=== PATIENT | female | born 1950 | race Two or more races ===

== ENCOUNTER 2024-07-16 13:56 | Inpatient (IN) | payer MEDICARE, OTHER ==
[2024-07-16] VITALS (33 sets, daily range): BP systolic 70–114; BP diastolic 35–81; TEMP 94; O2SAT 90–100
[~2024-07-16] VITALS: Ht 152.4 cm; Wt 52.8 kg
[2024-07-16 14:19] LABS: BASOPHILS % (AUTO) 0.4 % (0.0-2.0); EOSINOPHILS % (AUTO) 0.1 % (0.0-6.0); HEMATOCRIT 29 % (33-45); HEMOGLOBIN 9.2 g/dL (11.5-14.8); LYMPHOCYTES # (AUTO) 0.6 K/uL (0.8-4.8); LYMPHOCYTES % (AUTO) 6.6 % (20.0-44.0); MEAN CORPUSCULAR HEMOGLOBIN 29 PG (26.0-33.0); MEAN CORPUSCULAR HGB CONC 32 g/dl (31.0-36.0); MEAN CORPUSCULAR VOLUME 89 fL (82-100); MONOCYTES # (AUTO) 0.6 K/uL (0.1-1.30); MONOCYTES % (AUTO) 6.2 % (2.0-12.0); NEUTROPHILS # (AUTO) 8.4 K/uL (1.8-8.9); NEUTROPHILS % (AUTO) 86.7 % (43.0-81.0); PLATELET COUNT (AUTO) 342 K/uL (150-450); RED BLOOD CELL COUNT(AUTO) 3.22 MIL/uL (4.0-5.2); RED CELL DISTRIBUTION WIDTH 18.3 % (11.5-15.0); WHITE BLOOD COUNT (AUTO) 9.7 K/uL (4.3-11.0)
[2024-07-16] MEDS ORDERED: MAGN400O6 PO (14:24)
[2024-07-16] MEDS ORDERED: AMIN30LI66 PO (14:24)
[2024-07-16] MEDS ORDERED: VALP250S4 PO (14:24)
[2024-07-16] MEDS ORDERED: NA P133E RC (14:24)
[2024-07-16] MEDS ORDERED: CETI-90 PO (14:24)
[2024-07-16] MEDS ORDERED: MULT-213 PO (14:24)
[2024-07-16] MEDS ORDERED: ACET-2030 PO (14:24)
[2024-07-16] MEDS ORDERED: CALC-770 PO (14:24)
[2024-07-16] MEDS ORDERED: DOCU100T2 PO (14:24)
[2024-07-16] MEDS ORDERED: FERR325T28 PO (14:24)
[2024-07-16] MEDS ORDERED: LEVO88TA5 PO (14:24)
[2024-07-16] MEDS ORDERED: FOLI0.4T6 PO (14:24)
[2024-07-16] MEDS ORDERED: RIVA10TA PO (14:24)
[2024-07-16] MEDS ORDERED: QUET25TA PO (14:24)
[2024-07-16] MEDS ORDERED: METO25TA6 PO (14:24)
[2024-07-16] MEDS ORDERED: ASCO500T10 PO (14:24)
[2024-07-16] MEDS ORDERED: BISA10SU11 RC (14:24)
[2024-07-16] MEDS ORDERED: POLY17PO4 PO (14:24)
[2024-07-16] MEDS ORDERED: GABA-532 PO (14:24)
[2024-07-16] MEDS: IV NS 0.9% 1,000 ML BAG IV ONE (14:27)
[2024-07-16 14:35] LABS: ALANINE AMINOTRANSFERASE 11 U/L (12-78); ALBUMIN 2.1 g/dL (3.4-5.0); ALKALINE PHOSPHATASE 100 U/L (46-116); ASPARTATE AMINOTRANSFERASE 23 U/L (15-37); BILIRUBIN,DIRECT 0.1 mg/dL (0.0-0.2); BILIRUBIN,TOTAL 0.4 mg/dL (0.2-1.0); CALCIUM, SERUM 9.1 mg/dL (8.5-10.1); CARBON DIOXIDE 33 mmol/L (21-32); CHLORIDE 116 mmol/L (98-107); CREATININE 1.1 mg/dL (0.6-1.3); GLUCOSE 114 mg/dL (74-106); POTASSIUM 4.6 mmol/L (3.5-5.1); SODIUM SERUM 155 mmol/L (136-145); UREA NITROGEN, BLOOD 60 mg/dL (7-18)
[2024-07-16] MEDS: CEFEPIME 1 GM in IV D5W 50 ML IV ONE (14:39)
[2024-07-16 14:40] LABS: LACTIC ACID 2.1 mmol/L (0.4-2.0)
[2024-07-16 14:47] LABS: INR 1.2 (0.91-1.10); PARTIAL THROMBOPLASTIN TIME 30.8 SEC (24.3-34.3); PROTHROMBIN TIME 12.6 SECS (9.2-11.1)
[2024-07-16 15:06] LABS: APPEARANCE,URINE CLOUDY (CLEAR); BILIRUBIN,URINE NEGATIVE (NEGATIVE); BLOOD, URINE 1+ Ery/uL (NEGATIVE); COLOR,URINE YELLOW (YELLOW); KETONES,URINE NEGATIVE (NEGATIVE); LEUKOCYTE ESTERASE ,URINE 3+ (NEGATIVE); NITRITE, URINE POSITIVE (NEGATIVE); PROTEIN,URINE 1+ mg/dl (NEGATIVE); UGLUCOSE NEGATIVE (NEGATIVE); UROBILINOGEN,URINE 0.2 EU/dL (0.2)
[2024-07-16] MEDS: VANCOMYCIN 1 GM in IV D5W 250 ML IV ONE (15:06)
[2024-07-16] MEDS ORDERED: NOREPINEPHRINE 8MG/250ML RTU 250 ML IV ONE ×2 (15:08→15:59)
[2024-07-16] MEDS: NOREPINEPHRINE 8 MG in IV NS 0.9% 250 ML IV ONE (15:26)
[2024-07-16 15:41] LABS: ADD URINE CULTURE YES; BACTERIA,URINE 3+ /HPF (None Seen); SQUAMOUS EPITHELIAL CELL,UR 0-2 /HPF (None Seen); WBC,URINE 51-80 /HPF (0-3)
[2024-07-16] MEDS ORDERED: Z GUARD REMEDY 4 OZ OINT TP PRN (16:00)
[2024-07-16] MEDS ORDERED: ACETAMINOPHEN 325 MG TABLET PO PRN (16:00)
[2024-07-16] MEDS ORDERED: ONDANSETRON HCL/PF 4 MG/2 ML VIAL IVP PRN (16:00)
[2024-07-16] MEDS ORDERED: IV NS 0.9% 1,000 ML IV PRN (16:00)
[2024-07-16] MEDS ORDERED: MAGNESIUM HYDROXIDE 30 ML UDC PO PRN (16:00)
[2024-07-16] MEDS ORDERED: MAG HYDROX/AL HYDROX/SIMETH 30 ML UDC PO PRN (16:00)
[2024-07-16] MEDS ORDERED: HYDROCORTISONE SOD SUCCINATE 100 MG/2 ML VIAL ONE (16:17)
[2024-07-16] MEDS: HYDROCORTISONE SOD SUCCINATE 100 MG/2 ML VIAL IV ONE (16:21)
[2024-07-16] MEDS: IV LR 500 ML IV ONE (16:22)
[2024-07-16] MEDS ORDERED: AMIODARONE 150 MG in IV D5W 100 ML IV ONE (17:00)
[2024-07-16] MEDS: CALCIUM CARB 600MG /VIT D 1 EACH TABLET PO SCH (17:00)
[2024-07-16] MEDS: FERROUS SULFATE (325 MG) 325 MG/TAB TABLET PO SCH (17:00)
[2024-07-16] MEDS ORDERED: PHENYLEPHRINE 100 MG in IV NS 0.9% 240 ML IV PRN (17:00)
[2024-07-16] MEDS: VALPROIC ACID 250 MG/5 ML UDC PO SCH (17:00)
[2024-07-16] MEDS ORDERED: AMIODARONE 450 MG in IV D5W 241 ML IV PRN (17:00)
[2024-07-16] MEDS: PHENYLEPHRINE 100 MG in IV NS 0.9% 240 ML IV PRN (17:07)
[2024-07-16] MEDS: VASOPRESSIN INJ 40 UNIT in IV NS 0.9% 38 ML IV PRN (17:07)
[2024-07-16] MEDS: NOREPINEPHRINE 32 MG in IV NS 0.9% 218 ML IV PRN (17:07)
[2024-07-16 17:19] LABS: BAND % (MANUAL) 12 % (0.0-5.0); LYMPHOCYTES % (MANUAL) 9 % (16-48); METAMYELOCYTES % 1 % (0-0); MONOCYTES % (MANUAL) 2 % (0-11.0); NEUTROPHILS % (MANUAL) 76 (42-76); PLATELET ESTIMATE ADEQUATE
[2024-07-16 17:20] LABS: ANISOCYTOSIS 1+
[2024-07-16] MEDS ORDERED: EPINEPHRINE (1:10,000) SYRINGE 1 MG/10 ML DISP.SYRIN IVP ONE (17:25)
[2024-07-16 17:35] LABS: ABG BASE EXCESS 1.2 mmol/L (-2.0-3.0); ABG OXYGEN SATURATION 98.8 % (94.0-98.0); ABG PCO2 44.1 mmHg (32.0-45.0); ABG PH 7.394 (7.350-7.450); ABG PO2 151.2 mmHg (83.0-108.0); COHb 0.3 % (0.5-1.5); MetHb 0.4 % (0.0-1.5); O2Hb 98.1 % (94.0-97.0); SITE, ABG RIGHT RADIAL
[2024-07-16] MEDS: IV LR 1000 ML 1,000 ML IV ONE (17:40)
[2024-07-16] MEDS: IV 1/2NS 1000 ML 1,000 ML IV SCH (17:41)
[2024-07-16] MEDS: POLYETHYLENE GLYCOL 3350 17 GM POWD.PACK PO SCH (17:43)
[2024-07-16] MEDS: RIVAROXABAN 10 MG TABLET PO SCH (17:43)
[2024-07-16] MEDS ORDERED: Medication Not On Formulary EA (Amino AC/Protein Hydr/Whey Pro (Liquacel Liquid Protein PO SCH (18:00)
[2024-07-16 18:22] LABS: ABG BASE EXCESS -5.7 mmol/L (-2.0-3.0); ABG OXYGEN SATURATION 86.6 % (94.0-98.0); ABG PCO2 29.7 mmHg (32.0-45.0); ABG PH 7.404 (7.350-7.450); COHb 0.3 % (0.5-1.5); O2Hb 86.3 % (94.0-97.0); PEEP,BG 0 cm H2O; SITE, ABG RIGHT RADIAL; VT, ABG 500 mL
[2024-07-16] MEDS: ENOXAPARIN SODIUM 40 MG/0.4 ML DISP.SYRIN SQ SCH (18:49)
[2024-07-16] MEDS: CEFEPIME 1 GM in IV D5W 50 ML IV SCH (21:00)
[2024-07-16 21:18] LABS: CALCIUM, SERUM 8.7 mg/dL (8.5-10.1); CARBON DIOXIDE 26 mmol/L (21-32); CHLORIDE 113 mmol/L (98-107); GLUCOSE 256 mg/dL (74-106); SODIUM SERUM 150 mmol/L (136-145); UREA NITROGEN, BLOOD 51 mg/dL (7-18)
[2024-07-17] VITALS (92 sets, daily range): BP systolic 82–124; BP diastolic 49–79; TEMP 98.4–101.6; O2SAT 94–100
[2024-07-17] MEDS: VANCOMYCIN 500 MG in IV D5W 100ml IV SCH (03:00)
[2024-07-17 04:50] LABS: BASOPHILS % (AUTO) 0.2 % (0.0-2.0); HEMATOCRIT 29 % (33-45); HEMOGLOBIN 9.4 g/dL (11.5-14.8); LYMPHOCYTES % (AUTO) 9.2 % (20.0-44.0); MEAN CORPUSCULAR HEMOGLOBIN 29 PG (26.0-33.0); MEAN CORPUSCULAR HGB CONC 32 g/dl (31.0-36.0); MEAN CORPUSCULAR VOLUME 90 fL (82-100); MONOCYTES % (AUTO) 9.4 % (2.0-12.0); NEUTROPHILS # (AUTO) 8.6 K/uL (1.8-8.9); NEUTROPHILS % (AUTO) 81.2 % (43.0-81.0); PLATELET COUNT (AUTO) 411 K/uL (150-450); RED BLOOD CELL COUNT(AUTO) 3.28 MIL/uL (4.0-5.2); RED CELL DISTRIBUTION WIDTH 17.4 % (11.5-15.0); WHITE BLOOD COUNT (AUTO) 10.7 K/uL (4.3-11.0)
[2024-07-17] MEDS: ACETAMINOPHEN 650 MG/SUPP.RECT RC PRN (04:50)
[2024-07-17 05:02] LABS: CARBON DIOXIDE 24 mmol/L (21-32); CHLORIDE 111 mmol/L (98-107); CREATININE 0.9 mg/dL (0.6-1.3); GLUCOSE 129 mg/dL (74-106); MAGNESIUM 2.1 mg/dL (1.8-2.4); PHOSPHORUS 2.3 mg/dL (2.5-4.9); POTASSIUM 3.8 mmol/L (3.5-5.1); SODIUM SERUM 147 mmol/L (136-145); UREA NITROGEN, BLOOD 44 mg/dL (7-18)
[2024-07-17] MEDS ORDERED: LEVOTHYROXINE SODIUM 88 MCG TABLET PO SCH (07:30)
[2024-07-17] MEDS ORDERED: MAG HYDROX/AL HYDROX/SIMETH 30 ML UDC GT PRN (08:13)
[2024-07-17] MEDS ORDERED: MAGNESIUM HYDROXIDE 30 ML UDC GT PRN (08:13)
[2024-07-17] MEDS ORDERED: INSULIN REGULAR, HUMAN 100 UNIT/ML 3 ML VIAL SQ PRN (08:30)
[2024-07-17] MEDS ORDERED: BLOOD SUGAR DIAGNOSTIC 1 EACH STRIP IN SCH (08:30)
[2024-07-17] MEDS ORDERED: PHARMACY TO CHANGE PO MEDS TO GT/NG XX PRN (08:30)
[2024-07-17] MEDS ORDERED: DEXTROSE 50%-WATER 50 ML DISP.SYRIN IV PRN (08:30)
[2024-07-17] MEDS: DOCUSATE SODIUM LIQ 100 MG/10 ML UDC GT SCH (09:20)
[2024-07-17] MEDS: FOLIC ACID 1 MG TABLET GT SCH (09:21)
[2024-07-17] MEDS: ASCORBIC ACID 500 MG TABLET GT SCH (09:21)
[2024-07-17] MEDS: VALPROIC ACID 250 MG/5 ML UDC GT SCH (09:21)
[2024-07-17] MEDS: FERROUS SULFATE (325 MG) 325 MG/TAB TABLET GT SCH (09:21)
[2024-07-17] MEDS: MULTIVIT W/MINERALS 1 TAB TABLET GT SCH (09:21)
[2024-07-17] MEDS: IV 1/2NS 1000 ML 1,000 ML IV PRN (12:45)
[2024-07-17] MEDS: Sodium Phosphate 15 MMOL in IV NS 0.9% 245 ML IV SCH (15:48)
[2024-07-17] MEDS: ACETAMINOPHEN 650 MG/20.3 ML UDC GT PRN (16:26)
[2024-07-17] MEDS: POLYETHYLENE GLYCOL 3350 17 GM POWD.PACK GT SCH (17:12)
[2024-07-18] VITALS (99 sets, daily range): BP systolic 87–168; BP diastolic 53–120; TEMP 98.1–99.7; O2SAT 94–100
[2024-07-18 02:27] LABS: CALCIUM, SERUM 7.9 mg/dL (8.5-10.1); CARBON DIOXIDE 29 mmol/L (21-32); CHLORIDE 105 mmol/L (98-107); CREATININE 0.7 mg/dL (0.6-1.3); GLUCOSE 110 mg/dL (74-106); PHOSPHORUS 3.2 mg/dL (2.5-4.9); SODIUM SERUM 138 mmol/L (136-145); UREA NITROGEN, BLOOD 22 mg/dL (7-18)
[2024-07-18 03:02] LABS: POTASSIUM 2.6 mmol/L (3.5-5.1)
[2024-07-18] MEDS: POTASSIUM CL. PREMIX PERIPHER. 50 ML IV SCH (03:36)
[2024-07-18] MEDS: LEVOTHYROXINE SODIUM 88 MCG TABLET GT SCH (08:38)
[2024-07-18 09:23] LABS: ABG BASE EXCESS -0.3 mmol/L (-2.0-3.0); ABG OXYGEN SATURATION 93.1 % (94.0-98.0); ABG PCO2 20.8 mmHg (32.0-45.0); ABG PH 7.605 (7.350-7.450); ABG PO2 62.9 mmHg (83.0-108.0); ABG TOTAL HEMOGLOBIN 9.1 G/dL (12.0-16.0); COHb 0.3 % (0.5-1.5); MetHb 0.5 % (0.0-1.5); O2Hb 92.4 % (94.0-97.0); PEEP,BG 0 cm H2O; SITE, ABG RIGHT RADIAL; VT, ABG 500 mL
[2024-07-18 12:24] LABS: CARBON DIOXIDE 26 mmol/L (21-32); CHLORIDE 105 mmol/L (98-107); CREATININE 0.6 mg/dL (0.6-1.3); GLUCOSE 103 mg/dL (74-106); SODIUM SERUM 139 mmol/L (136-145); UREA NITROGEN, BLOOD 16 mg/dL (7-18)
[2024-07-18] MEDS: HYDROCORTISONE SOD SUCCINATE 100 MG/2 ML VIAL IV SCH (12:28)
[2024-07-18] MEDS: IPRATROPIUM NEB FS 0.5 MG/2.5 ML AMPUL.NEB NEB SCH (15:36)
[2024-07-18] MEDS: ACETYLCYSTEINE 10% SOLN 400 MG/4 ML VIAL NEB SCH (15:36)
[2024-07-18] MEDS: POTASSIUM CHLORIDE 20 MEQ POWDER PACKET NG SCH (15:36)
[2024-07-19] VITALS (93 sets, daily range): BP systolic 94–120; BP diastolic 60–98; TEMP 98–98.9; O2SAT 98–100
[2024-07-19 04:27] LABS: BASOPHILS % (AUTO) 0.2 % (0.0-2.0); HEMATOCRIT 24 % (33-45); LYMPHOCYTES # (AUTO) 0.5 K/uL (0.8-4.8); LYMPHOCYTES % (AUTO) 5.1 % (20.0-44.0); MEAN CORPUSCULAR HEMOGLOBIN 29 PG (26.0-33.0); MEAN CORPUSCULAR HGB CONC 33 g/dl (31.0-36.0); MEAN CORPUSCULAR VOLUME 87 fL (82-100); MONOCYTES # (AUTO) 0.4 K/uL (0.1-1.30); NEUTROPHILS # (AUTO) 9.5 K/uL (1.8-8.9); NEUTROPHILS % (AUTO) 90.7 % (43.0-81.0); PLATELET COUNT (AUTO) 292 K/uL (150-450); RED BLOOD CELL COUNT(AUTO) 2.79 MIL/uL (4.0-5.2); RED CELL DISTRIBUTION WIDTH 17.4 % (11.5-15.0); WHITE BLOOD COUNT (AUTO) 10.5 K/uL (4.3-11.0)
[2024-07-19 04:46] LABS: CALCIUM, SERUM 8.2 mg/dL (8.5-10.1); CARBON DIOXIDE 22 mmol/L (21-32); CHLORIDE 105 mmol/L (98-107); CREATININE 0.5 mg/dL (0.6-1.3); GLUCOSE 112 mg/dL (74-106); POTASSIUM 3.6 mmol/L (3.5-5.1); SODIUM SERUM 139 mmol/L (136-145); UREA NITROGEN, BLOOD 16 mg/dL (7-18)
[2024-07-19 08:53] LABS: ABG BASE EXCESS -1.6 mmol/L (-2.0-3.0); ABG OXYGEN SATURATION 97.5 % (94.0-98.0); ABG PCO2 24.9 mmHg (32.0-45.0); ABG PH 7.528 (7.350-7.450); ABG PO2 100.6 mmHg (83.0-108.0); ABG TOTAL HEMOGLOBIN 9.3 G/dL (12.0-16.0); COHb 0.3 % (0.5-1.5); MetHb 0.1 % (0.0-1.5); O2Hb 97.1 % (94.0-97.0); PEEP,BG 5 cm H2O; SITE, ABG RIGHT RADIAL; VT, ABG 450 mL
[2024-07-19] MEDS: AMIODARONE 150 MG in IV D5W 100 ML IV ONE (09:30)
[2024-07-19] MEDS ORDERED: AMIODARONE 450 MG in IV D5W 250 ML IV PRN (09:40)
[2024-07-19 10:32] LABS: MAGNESIUM 1.9 mg/dL (1.8-2.4)
[2024-07-19 10:44] LABS: THYROID STIMULATING HORMONE 0.29 uIU/mL (0.358-3.74)
[2024-07-19] MEDS: JEVITY 1.2 CAL 1,000 ML BOTTLE GT PRN (14:26)
[2024-07-19] MEDS: VANCOMYCIN 750 MG in IV D5W 250 ML IV SCH (15:18)
[2024-07-19] MEDS ORDERED: NOREPINEPHRINE 8 MG in IV D5W 250ML IV PRN (19:30)
[2024-07-19] MEDS ORDERED: NOREPINEPHRINE 8 MG in IV D5W 492 ML IV PRN (19:30)
[2024-07-20] VITALS (95 sets, daily range): BP systolic 99–127; BP diastolic 56–83; TEMP 98.3–100.4; O2SAT 95–100
[2024-07-20 04:47] LABS: BASOPHILS % (AUTO) 0.1 % (0.0-2.0); HEMATOCRIT 26 % (33-45); HEMOGLOBIN 8.5 g/dL (11.5-14.8); LYMPHOCYTES # (AUTO) 0.5 K/uL (0.8-4.8); LYMPHOCYTES % (AUTO) 6.2 % (20.0-44.0); MEAN CORPUSCULAR HEMOGLOBIN 29 PG (26.0-33.0); MEAN CORPUSCULAR HGB CONC 33 g/dl (31.0-36.0); MEAN CORPUSCULAR VOLUME 88 fL (82-100); MONOCYTES # (AUTO) 0.4 K/uL (0.1-1.30); MONOCYTES % (AUTO) 4.7 % (2.0-12.0); NEUTROPHILS # (AUTO) 7.6 K/uL (1.8-8.9); PLATELET COUNT (AUTO) 286 K/uL (150-450); RED BLOOD CELL COUNT(AUTO) 2.94 MIL/uL (4.0-5.2); RED CELL DISTRIBUTION WIDTH 17.3 % (11.5-15.0); WHITE BLOOD COUNT (AUTO) 8.6 K/uL (4.3-11.0)
[2024-07-20 05:02] LABS: CALCIUM, SERUM 7.7 mg/dL (8.5-10.1); CARBON DIOXIDE 22 mmol/L (21-32); CHLORIDE 104 mmol/L (98-107); CREATININE 0.5 mg/dL (0.6-1.3); GLUCOSE 156 mg/dL (74-106); SODIUM SERUM 136 mmol/L (136-145); UREA NITROGEN, BLOOD 18 mg/dL (7-18)
[2024-07-20] MEDS: POTASSIUM CHLORIDE 20 MEQ POWDER PACKET GT SCH (08:38)
[2024-07-20] MEDS ORDERED: POTASSIUM CHLORIDE 20 MEQ POWDER PACKET GT SCH (09:30)
[2024-07-21] VITALS (78 sets, daily range): BP systolic 85–124; BP diastolic 45–82; TEMP 97–98.8; O2SAT 96–99
[2024-07-21 02:05] LABS: BASOPHILS % (AUTO) 0.1 % (0.0-2.0); EOSINOPHILS # (AUTO) 0.1 K/uL (0.0-0.7); EOSINOPHILS % (AUTO) 0.4 % (0.0-6.0); HEMATOCRIT 31 % (33-45); HEMOGLOBIN 9.7 g/dL (11.5-14.8); LYMPHOCYTES # (AUTO) 0.7 K/uL (0.8-4.8); LYMPHOCYTES % (AUTO) 5.2 % (20.0-44.0); MEAN CORPUSCULAR HEMOGLOBIN 29 PG (26.0-33.0); MEAN CORPUSCULAR HGB CONC 31 g/dl (31.0-36.0); MEAN CORPUSCULAR VOLUME 93 fL (82-100); MONOCYTES % (AUTO) 7.6 % (2.0-12.0); NEUTROPHILS # (AUTO) 11.7 K/uL (1.8-8.9); NEUTROPHILS % (AUTO) 86.7 % (43.0-81.0); PLATELET COUNT (AUTO) 228 K/uL (150-450); RED BLOOD CELL COUNT(AUTO) 3.38 MIL/uL (4.0-5.2); RED CELL DISTRIBUTION WIDTH 17.9 % (11.5-15.0); WHITE BLOOD COUNT (AUTO) 13.5 K/uL (4.3-11.0)
[2024-07-21 02:11] LABS: CALCIUM, SERUM 7.9 mg/dL (8.5-10.1); CARBON DIOXIDE 23 mmol/L (21-32); CHLORIDE 106 mmol/L (98-107); CREATININE 0.5 mg/dL (0.6-1.3); GLUCOSE 158 mg/dL (74-106); POTASSIUM 4.2 mmol/L (3.5-5.1); SODIUM SERUM 136 mmol/L (136-145); UREA NITROGEN, BLOOD 19 mg/dL (7-18)
[2024-07-21] MEDS: AMIODARONE HCL 200 MG TABLET NG SCH ×2 (09:20→14:45)
[2024-07-21] MEDS: VALPROIC ACID 250 MG/5 ML UDC GT SCH (14:42)
[2024-07-21] MEDS: CALCIUM CARB 600MG /VIT D 1 EACH TABLET PO SCH (20:38)
[2024-07-21] MEDS: FERROUS SULFATE (325 MG) 325 MG/TAB TABLET GT SCH (20:38)
[2024-07-22] VITALS (25 sets, daily range): BP systolic 86–120; BP diastolic 44–70; TEMP 97.1–97.9; O2SAT 97–100
[2024-07-22 05:24] LABS: CALCIUM, SERUM 7.7 mg/dL (8.5-10.1); CARBON DIOXIDE 22 mmol/L (21-32); CHLORIDE 105 mmol/L (98-107); CREATININE 0.4 mg/dL (0.6-1.3); GLUCOSE 186 mg/dL (74-106); POTASSIUM 3.8 mmol/L (3.5-5.1); SODIUM SERUM 136 mmol/L (136-145); UREA NITROGEN, BLOOD 21 mg/dL (7-18)
[2024-07-23] VITALS (25 sets, daily range): BP systolic 90–129; BP diastolic 43–74; TEMP 97.5–98.5; O2SAT 94–100
[2024-07-23 04:49] LABS: CALCIUM, SERUM 8.4 mg/dL (8.5-10.1); CARBON DIOXIDE 27 mmol/L (21-32); CHLORIDE 107 mmol/L (98-107); CREATININE 0.4 mg/dL (0.6-1.3); GLUCOSE 150 mg/dL (74-106); POTASSIUM 4.1 mmol/L (3.5-5.1); SODIUM SERUM 140 mmol/L (136-145); UREA NITROGEN, BLOOD 19 mg/dL (7-18)
[2024-07-23] MEDS: JEVITY 1.2 CAL 1,000 ML BOTTLE GT PRN (17:53)
[2024-07-23] MEDS: CEFEPIME 2 GM in IV D5W 100 ML IV SCH (21:10)
[2024-07-24] VITALS (24 sets, daily range): BP systolic 96–128; BP diastolic 57–84; TEMP 97.6–98.6; O2SAT 97–100
[2024-07-24 04:33] LABS: CALCIUM, SERUM 8.2 mg/dL (8.5-10.1); CREATININE 0.3 mg/dL (0.6-1.3); GLUCOSE 139 mg/dL (74-106); UREA NITROGEN, BLOOD 19 mg/dL (7-18)
[2024-07-24 04:57] LABS: CARBON DIOXIDE 30 mmol/L (21-32); CHLORIDE 105 mmol/L (98-107); SODIUM SERUM 140 mmol/L (136-145)
[2024-07-24 09:12] LABS: THYROID STIMULATING HORMONE 2.49 uIU/mL (0.358-3.74)
[2024-07-24] MEDS: AMIODARONE HCL 200 MG TABLET NG SCH (13:12)
[2024-07-25] VITALS (20 sets, daily range): BP systolic 97–134; BP diastolic 39–65; TEMP 97.8–98.8; O2SAT 97–100
[2024-07-25 04:27] LABS: BASOPHILS % (AUTO) 0.4 % (0.0-2.0); HEMATOCRIT 26 % (33-45); HEMOGLOBIN 8.5 g/dL (11.5-14.8); LYMPHOCYTES # (AUTO) 0.6 K/uL (0.8-4.8); LYMPHOCYTES % (AUTO) 5.5 % (20.0-44.0); MEAN CORPUSCULAR HEMOGLOBIN 29 PG (26.0-33.0); MEAN CORPUSCULAR HGB CONC 33 g/dl (31.0-36.0); MEAN CORPUSCULAR VOLUME 90 fL (82-100); MONOCYTES # (AUTO) 0.4 K/uL (0.1-1.30); MONOCYTES % (AUTO) 3.8 % (2.0-12.0); NEUTROPHILS # (AUTO) 9.8 K/uL (1.8-8.9); NEUTROPHILS % (AUTO) 90.3 % (43.0-81.0); PLATELET COUNT (AUTO) 438 K/uL (150-450); RED BLOOD CELL COUNT(AUTO) 2.91 MIL/uL (4.0-5.2); RED CELL DISTRIBUTION WIDTH 17.9 % (11.5-15.0); WHITE BLOOD COUNT (AUTO) 10.8 K/uL (4.3-11.0)
[2024-07-25 04:37] LABS: CARBON DIOXIDE 27 mmol/L (21-32); CHLORIDE 102 mmol/L (98-107); CREATININE 0.4 mg/dL (0.6-1.3); GLUCOSE 154 mg/dL (74-106); POTASSIUM 3.8 mmol/L (3.5-5.1); SODIUM SERUM 137 mmol/L (136-145); UREA NITROGEN, BLOOD 20 mg/dL (7-18)
[2024-07-25 05:28] LABS: BAND % (MANUAL) 4 % (0.0-5.0); LYMPHOCYTES % (MANUAL) 2 % (16-48); MONOCYTES % (MANUAL) 6 % (0-11.0); MYELOCYTES % 1 % (0-0); NEUTROPHILS % (MANUAL) 87 (42-76)
[2024-07-25 05:29] LABS: ANISOCYTOSIS 1+; HYPOCHROMASIA 1+; PLATELET ESTIMATE ADEQUATE
[2024-07-26] VITALS (25 sets, daily range): BP systolic 105–130; BP diastolic 53–70; TEMP 97.5–98.5; O2SAT 95–100
[2024-07-26 02:11] LABS: FOLIC ACID 11.5 ng/mL (>3.0)
[2024-07-26 05:37] LABS: CALCIUM, SERUM 7.3 mg/dL (8.5-10.1); CARBON DIOXIDE 28 mmol/L (21-32); CHLORIDE 102 mmol/L (98-107); CREATININE 0.3 mg/dL (0.6-1.3); GLUCOSE 162 mg/dL (74-106); POTASSIUM 3.6 mmol/L (3.5-5.1); SODIUM SERUM 138 mmol/L (136-145); UREA NITROGEN, BLOOD 19 mg/dL (7-18)
[2024-07-27] VITALS (51 sets, daily range): BP systolic 92–143; BP diastolic 46–85; TEMP 97.5–98.7; O2SAT 94–100
[2024-07-27 05:08] LABS: CALCIUM, SERUM 7.8 mg/dL (8.5-10.1); CARBON DIOXIDE 28 mmol/L (21-32); CHLORIDE 102 mmol/L (98-107); CREATININE 0.4 mg/dL (0.6-1.3); GLUCOSE 134 mg/dL (74-106); MAGNESIUM 2.1 mg/dL (1.8-2.4); PHOSPHORUS 2.4 mg/dL (2.5-4.9); POTASSIUM 3.1 mmol/L (3.5-5.1); SODIUM SERUM 138 mmol/L (136-145); UREA NITROGEN, BLOOD 20 mg/dL (7-18)
[2024-07-27 05:14] LABS: BASOPHILS % (AUTO) 0.1 % (0.0-2.0); HEMATOCRIT 25 % (33-45); HEMOGLOBIN 8.7 g/dL (11.5-14.8); LYMPHOCYTES # (AUTO) 0.4 K/uL (0.8-4.8); LYMPHOCYTES % (AUTO) 5.3 % (20.0-44.0); MEAN CORPUSCULAR HEMOGLOBIN 31 PG (26.0-33.0); MEAN CORPUSCULAR HGB CONC 34 g/dl (31.0-36.0); MEAN CORPUSCULAR VOLUME 89 fL (82-100); MONOCYTES # (AUTO) 0.3 K/uL (0.1-1.30); MONOCYTES % (AUTO) 4.3 % (2.0-12.0); NEUTROPHILS # (AUTO) 6.9 K/uL (1.8-8.9); NEUTROPHILS % (AUTO) 90.3 % (43.0-81.0); PLATELET COUNT (AUTO) 522 K/uL (150-450); RED BLOOD CELL COUNT(AUTO) 2.83 MIL/uL (4.0-5.2); WHITE BLOOD COUNT (AUTO) 7.7 K/uL (4.3-11.0)
[2024-07-27] MEDS: VECURONIUM 10 MG VIAL IV PRN (07:31)
[2024-07-27] MEDS: FENTANYL PF 100MCG/2ML AMPUL IV PRN (07:31)
[2024-07-27] MEDS: MIDAZOLAM HCL 2 MG/2ML VIAL IV PRN (07:31)
[2024-07-27 09:19] LABS: IRON, SERUM 40 ug/dl (50-175); TOTAL IRON BINDING CAPACITY 216 ug/dl (250-450)
[2024-07-27 09:34] LABS: FERRITIN 254 ng/mL (8-388)
[2024-07-27] MEDS: POTASSIUM CL. PREMIX PERIPHER. 50 ML IV SCH (10:13)
[2024-07-27] MEDS: HYDROCORTISONE SOD SUCCINATE 100 MG/2 ML VIAL IV SCH (13:24)
[2024-07-27 15:33] LABS: ANISOCYTOSIS 1+; BAND % (MANUAL) 1 % (0.0-5.0); LYMPHOCYTES % (MANUAL) 5 % (16-48); MONOCYTES % (MANUAL) 2 % (0-11.0); NEUTROPHILS % (MANUAL) 92 (42-76); PLATELET ESTIMATE INCREASED
[2024-07-27] MEDS: NEUTRA PHOS 1 POWD.PACKET GT ONE (16:12)
[2024-07-28] VITALS (13 sets, daily range): BP systolic 90–117; BP diastolic 47–66; TEMP 97.5–98.8; O2SAT 95–98
[2024-07-28 04:59] LABS: BASOPHILS % (AUTO) 0.1 % (0.0-2.0); HEMATOCRIT 26 % (33-45); HEMOGLOBIN 8.4 g/dL (11.5-14.8); LYMPHOCYTES # (AUTO) 0.5 K/uL (0.8-4.8); LYMPHOCYTES % (AUTO) 4.7 % (20.0-44.0); MEAN CORPUSCULAR HEMOGLOBIN 30 PG (26.0-33.0); MEAN CORPUSCULAR HGB CONC 33 g/dl (31.0-36.0); MEAN CORPUSCULAR VOLUME 90 fL (82-100); MONOCYTES # (AUTO) 0.5 K/uL (0.1-1.30); MONOCYTES % (AUTO) 4.1 % (2.0-12.0); NEUTROPHILS # (AUTO) 10.3 K/uL (1.8-8.9); NEUTROPHILS % (AUTO) 91.1 % (43.0-81.0); PLATELET COUNT (AUTO) 514 K/uL (150-450); RED BLOOD CELL COUNT(AUTO) 2.84 MIL/uL (4.0-5.2); RED CELL DISTRIBUTION WIDTH 19.3 % (11.5-15.0); WHITE BLOOD COUNT (AUTO) 11.3 K/uL (4.3-11.0)
[2024-07-28 05:18] LABS: CALCIUM, SERUM 7.8 mg/dL (8.5-10.1); CARBON DIOXIDE 28 mmol/L (21-32); CHLORIDE 103 mmol/L (98-107); CREATININE 0.3 mg/dL (0.6-1.3); GLUCOSE 125 mg/dL (74-106); MAGNESIUM 2.2 mg/dL (1.8-2.4); PHOSPHORUS 3.5 mg/dL (2.5-4.9); POTASSIUM 3.6 mmol/L (3.5-5.1); SODIUM SERUM 139 mmol/L (136-145); UREA NITROGEN, BLOOD 21 mg/dL (7-18)
[2024-07-29] VITALS (8 sets, daily range): BP systolic 108–132; BP diastolic 58–70; TEMP 97.3–98.2; O2SAT 96–100
[2024-07-30 01:08] VITALS: BP 101/84; TEMP 97.2; O2SAT 100
[2024-07-30 04:13] VITALS: BP 111/53; TEMP 97; O2SAT 100
[2024-07-30 06:38] LABS: BASOPHILS % (AUTO) 0.4 % (0.0-2.0); HEMATOCRIT 28 % (33-45); HEMOGLOBIN 8.7 g/dL (11.5-14.8); LYMPHOCYTES # (AUTO) 0.9 K/uL (0.8-4.8); LYMPHOCYTES % (AUTO) 11.9 % (20.0-44.0); MEAN CORPUSCULAR HEMOGLOBIN 29 PG (26.0-33.0); MEAN CORPUSCULAR HGB CONC 32 g/dl (31.0-36.0); MEAN CORPUSCULAR VOLUME 92 fL (82-100); MONOCYTES # (AUTO) 0.4 K/uL (0.1-1.30); MONOCYTES % (AUTO) 6.1 % (2.0-12.0); NEUTROPHILS % (AUTO) 81.6 % (43.0-81.0); PLATELET COUNT (AUTO) 419 K/uL (150-450); RED BLOOD CELL COUNT(AUTO) 3.02 MIL/uL (4.0-5.2); RED CELL DISTRIBUTION WIDTH 19.9 % (11.5-15.0); WHITE BLOOD COUNT (AUTO) 7.3 K/uL (4.3-11.0)
[2024-07-30 07:01] LABS: CALCIUM, SERUM 7.9 mg/dL (8.5-10.1); CARBON DIOXIDE 27 mmol/L (21-32); CHLORIDE 101 mmol/L (98-107); CREATININE 0.3 mg/dL (0.6-1.3); GLUCOSE 102 mg/dL (74-106); PHOSPHORUS 2.4 mg/dL (2.5-4.9); SODIUM SERUM 139 mmol/L (136-145); UREA NITROGEN, BLOOD 13 mg/dL (7-18)
[2024-07-30 07:06] LABS: POTASSIUM 2.4 mmol/L (3.5-5.1)
[2024-07-30 08:00] VITALS: BP 115/58; TEMP 97.9; O2SAT 100; O2SAT 99
[2024-07-30] MEDS ORDERED: POTASSIUM CL. PREMIX PERIPHER. 50 ML IV SCH (08:30)
[2024-07-30] MEDS: Potassium Chloride 20 MEQ in IV D5W 100 ML IV SCH (09:05)
[2024-07-30 12:00] VITALS: BP 112/48; TEMP 98.1; O2SAT 100; O2SAT 96
[2024-07-30] MEDS: NEUTRA PHOS 1 POWD.PACKET GT ONE (15:30)
[2024-07-30 16:00] VITALS: BP 106/47; TEMP 97.9; O2SAT 100
[2024-07-30 20:00] VITALS: BP 103/48; TEMP 98.6; O2SAT 97
[2024-07-31] VITALS (7 sets, daily range): BP systolic 98–111; BP diastolic 47–56; TEMP 97.2–99; O2SAT 97–99
[2024-07-31 07:28] LABS: BASOPHILS % (AUTO) 0.2 % (0.0-2.0); HEMATOCRIT 26 % (33-45); HEMOGLOBIN 8.6 g/dL (11.5-14.8); LYMPHOCYTES # (AUTO) 0.5 K/uL (0.8-4.8); LYMPHOCYTES % (AUTO) 6.4 % (20.0-44.0); MEAN CORPUSCULAR HEMOGLOBIN 30 PG (26.0-33.0); MEAN CORPUSCULAR HGB CONC 33 g/dl (31.0-36.0); MEAN CORPUSCULAR VOLUME 90 fL (82-100); MONOCYTES # (AUTO) 0.4 K/uL (0.1-1.30); MONOCYTES % (AUTO) 4.6 % (2.0-12.0); NEUTROPHILS % (AUTO) 88.8 % (43.0-81.0); PLATELET COUNT (AUTO) 473 K/uL (150-450); RED BLOOD CELL COUNT(AUTO) 2.85 MIL/uL (4.0-5.2); RED CELL DISTRIBUTION WIDTH 20.2 % (11.5-15.0); WHITE BLOOD COUNT (AUTO) 7.9 K/uL (4.3-11.0)
[2024-07-31 07:59] LABS: CALCIUM, SERUM 7.3 mg/dL (8.5-10.1); CARBON DIOXIDE 27 mmol/L (21-32); CHLORIDE 106 mmol/L (98-107); CREATININE 0.4 mg/dL (0.6-1.3); GLUCOSE 95 mg/dL (74-106); MAGNESIUM 2.1 mg/dL (1.8-2.4); PHOSPHORUS 3.3 mg/dL (2.5-4.9); POTASSIUM 2.8 mmol/L (3.5-5.1); SODIUM SERUM 141 mmol/L (136-145); UREA NITROGEN, BLOOD 17 mg/dL (7-18)
[2024-07-31] MEDS: POTASSIUM CL. PREMIX PERIPHER. 50 ML IV SCH (08:58)
[2024-07-31] MEDS ORDERED: POTASSIUM CHLORIDE 20 MEQ POWDER PACKET GT SCH (11:00)
[2024-07-31] MEDS: HYDROCORTISONE SOD SUCCINATE 100 MG/2 ML VIAL IV SCH (17:59)
[2024-07-31 18:14] LABS: CALCIUM, SERUM 7.5 mg/dL (8.5-10.1); CARBON DIOXIDE 28 mmol/L (21-32); CHLORIDE 107 mmol/L (98-107); CREATININE 0.4 mg/dL (0.6-1.3); GLUCOSE 101 mg/dL (74-106); MAGNESIUM 2.4 mg/dL (1.8-2.4); POTASSIUM 3.6 mmol/L (3.5-5.1); SODIUM SERUM 140 mmol/L (136-145); UREA NITROGEN, BLOOD 19 mg/dL (7-18)
[2024-07-31] MEDS: POTASSIUM CHLORIDE 20 MEQ POWDER PACKET GT ONE (18:49)
[2024-07-31] MEDS: CALCIUM CARB 600MG /VIT D 1 EACH TABLET GT SCH (21:34)
[2024-08-01] VITALS (7 sets, daily range): BP systolic 66–121; BP diastolic 51–66; TEMP 96.6–98.1; O2SAT 96–99
[2024-08-01 00:28] LABS: CALCIUM, SERUM 7.7 mg/dL (8.5-10.1); CARBON DIOXIDE 20 mmol/L (21-32); CHLORIDE 107 mmol/L (98-107); CREATININE 0.3 mg/dL (0.6-1.3); GLUCOSE 113 mg/dL (74-106); MAGNESIUM 2.7 mg/dL (1.8-2.4); POTASSIUM 4.4 mmol/L (3.5-5.1); SODIUM SERUM 135 mmol/L (136-145); UREA NITROGEN, BLOOD 18 mg/dL (7-18)
[2024-08-01 07:08] LABS: BASOPHILS % (AUTO) 0.3 % (0.0-2.0); EOSINOPHILS % (AUTO) 0.1 % (0.0-6.0); HEMATOCRIT 32 % (33-45); HEMOGLOBIN 9.7 g/dL (11.5-14.8); LYMPHOCYTES # (AUTO) 1.4 K/uL (0.8-4.8); MEAN CORPUSCULAR HEMOGLOBIN 30 PG (26.0-33.0); MEAN CORPUSCULAR HGB CONC 31 g/dl (31.0-36.0); MEAN CORPUSCULAR VOLUME 97 fL (82-100); MONOCYTES # (AUTO) 0.3 K/uL (0.1-1.30); MONOCYTES % (AUTO) 4.4 % (2.0-12.0); NEUTROPHILS # (AUTO) 5.4 K/uL (1.8-8.9); NEUTROPHILS % (AUTO) 75.2 % (43.0-81.0); PLATELET COUNT (AUTO) 409 K/uL (150-450); RED BLOOD CELL COUNT(AUTO) 3.28 MIL/uL (4.0-5.2); RED CELL DISTRIBUTION WIDTH 22.2 % (11.5-15.0); WHITE BLOOD COUNT (AUTO) 7.2 K/uL (4.3-11.0)
[2024-08-01 08:23] LABS: CALCIUM, SERUM 8.2 mg/dL (8.5-10.1); CARBON DIOXIDE 21 mmol/L (21-32); CHLORIDE 104 mmol/L (98-107); CREATININE 0.3 mg/dL (0.6-1.3); GLUCOSE 97 mg/dL (74-106); MAGNESIUM 2.3 mg/dL (1.8-2.4); POTASSIUM 3.6 mmol/L (3.5-5.1); SODIUM SERUM 138 mmol/L (136-145); UREA NITROGEN, BLOOD 16 mg/dL (7-18)
[2024-08-02] VITALS (7 sets, daily range): BP systolic 94–119; BP diastolic 54–68; TEMP 96.6–97.7; O2SAT 99–100
[2024-08-02] MEDS: HYDROCORTISONE SOD SUCCINATE 100 MG/2 ML VIAL IV SCH (04:43)
[2024-08-02 11:16] LABS: BASOPHILS % (AUTO) 0.4 % (0.0-2.0); HEMATOCRIT 36 % (33-45); HEMOGLOBIN 11.6 g/dL (11.5-14.8); LYMPHOCYTES # (AUTO) 0.9 K/uL (0.8-4.8); LYMPHOCYTES % (AUTO) 8.7 % (20.0-44.0); MEAN CORPUSCULAR HEMOGLOBIN 31 PG (26.0-33.0); MEAN CORPUSCULAR HGB CONC 32 g/dl (31.0-36.0); MEAN CORPUSCULAR VOLUME 95 fL (82-100); MONOCYTES # (AUTO) 0.4 K/uL (0.1-1.30); MONOCYTES % (AUTO) 4.2 % (2.0-12.0); NEUTROPHILS # (AUTO) 8.5 K/uL (1.8-8.9); NEUTROPHILS % (AUTO) 86.7 % (43.0-81.0); PLATELET COUNT (AUTO) 417 K/uL (150-450); RED BLOOD CELL COUNT(AUTO) 3.78 MIL/uL (4.0-5.2); RED CELL DISTRIBUTION WIDTH 21.5 % (11.5-15.0); WHITE BLOOD COUNT (AUTO) 9.8 K/uL (4.3-11.0)
[2024-08-02] MEDS: IV D5/ 0.9% NACL 1,000 ML IV PRN (11:38)
[2024-08-02 12:25] LABS: CALCIUM, SERUM 8.3 mg/dL (8.5-10.1); CARBON DIOXIDE 20 mmol/L (21-32); CHLORIDE 103 mmol/L (98-107); CREATININE 0.3 mg/dL (0.6-1.3); GLUCOSE 81 mg/dL (74-106); MAGNESIUM 2.3 mg/dL (1.8-2.4); PHOSPHORUS 3.4 mg/dL (2.5-4.9); POTASSIUM 2.8 mmol/L (3.5-5.1); SODIUM SERUM 138 mmol/L (136-145); UREA NITROGEN, BLOOD 13 mg/dL (7-18)
[2024-08-02] MEDS: POTASSIUM CL. PREMIX PERIPHER. 50 ML IV SCH (14:33)
[2024-08-03] VITALS (8 sets, daily range): BP systolic 93–126; BP diastolic 56–77; TEMP 96.4–98.2; O2SAT 99–100
[2024-08-03 08:11] LABS: BASOPHILS % (AUTO) 0.6 % (0.0-2.0); EOSINOPHILS % (AUTO) 0.1 % (0.0-6.0); HEMATOCRIT 32 % (33-45); HEMOGLOBIN 10.3 g/dL (11.5-14.8); LYMPHOCYTES # (AUTO) 0.5 K/uL (0.8-4.8); MEAN CORPUSCULAR HEMOGLOBIN 30 PG (26.0-33.0); MEAN CORPUSCULAR HGB CONC 32 g/dl (31.0-36.0); MEAN CORPUSCULAR VOLUME 93 fL (82-100); MONOCYTES # (AUTO) 0.2 K/uL (0.1-1.30); MONOCYTES % (AUTO) 3.3 % (2.0-12.0); NEUTROPHILS # (AUTO) 5.9 K/uL (1.8-8.9); PLATELET COUNT (AUTO) 368 K/uL (150-450); RED BLOOD CELL COUNT(AUTO) 3.41 MIL/uL (4.0-5.2); RED CELL DISTRIBUTION WIDTH 21.8 % (11.5-15.0); WHITE BLOOD COUNT (AUTO) 6.7 K/uL (4.3-11.0)
[2024-08-03 08:19] LABS: CALCIUM, SERUM 7.9 mg/dL (8.5-10.1); CARBON DIOXIDE 20 mmol/L (21-32); CHLORIDE 111 mmol/L (98-107); CREATININE 0.3 mg/dL (0.6-1.3); GLUCOSE 98 mg/dL (74-106); POTASSIUM 3.8 mmol/L (3.5-5.1); SODIUM SERUM 143 mmol/L (136-145); UREA NITROGEN, BLOOD 10 mg/dL (7-18)
[2024-08-04] VITALS: BP 125/73; TEMP 97.9; O2SAT 100
[2024-08-04 04:00] VITALS: BP 117/66; TEMP 97.9; O2SAT 100
[2024-08-04 08:00] VITALS: BP 119/66; TEMP 98.1; O2SAT 100
[2024-08-04 12:00] VITALS: BP 101/53; TEMP 98.4; O2SAT 100
[2024-08-04 16:00] VITALS: BP 100/57; TEMP 97.5; O2SAT 100
[2024-08-04 20:00] VITALS: BP 124/72; TEMP 97.8; O2SAT 100
[2024-08-05] VITALS: BP 101/66; TEMP 98.1; O2SAT 100
[2024-08-05 04:00] VITALS: BP 100/63; TEMP 98.5; O2SAT 100
[2024-08-05 08:00] VITALS: BP 103/59; TEMP 97.3; O2SAT 100
[2024-08-05 12:00] VITALS: BP 102/51; TEMP 97.5; O2SAT 100
[2024-08-05 16:00] VITALS: BP 106/54; TEMP 97.9; O2SAT 100
[2024-08-05 20:00] VITALS: BP 128/71; TEMP 98.7; O2SAT 99
[2024-08-06 02:38] VITALS: BP 100/60; TEMP 98.5; O2SAT 100
[2024-08-06 04:49] VITALS: BP 117/60; TEMP 98.1; O2SAT 100
[2024-08-06 08:00] VITALS: BP 105/89; TEMP 97.6; O2SAT 100
[2024-08-06 12:00] VITALS: BP 118/64; TEMP 97.5; O2SAT 100
[2024-08-06 16:00] VITALS: BP 138/73; TEMP 97.8; O2SAT 100
[2024-08-06 20:00] VITALS: BP 136/71; TEMP 99.7; O2SAT 100
[2024-08-07] VITALS (7 sets, daily range): BP systolic 90–119; BP diastolic 45–59; TEMP 97.6–101.8; O2SAT 100
[2024-08-08] VITALS (77 sets, daily range): BP systolic 64–165; BP diastolic 34–79; TEMP 97.6–99.1; O2SAT 95–100
[2024-08-08] MEDS: IV NS 0.9% 1,000 ML BAG IV STA (00:34)
[2024-08-08] MEDS ORDERED: NA PHOS,M-B/NA PHOS,DI-BA 1 EA ENEMA RC PRN (05:00)
[2024-08-08] MEDS ORDERED: BISACODYL SUPP (10 MG) 10 MG/SUPP.RECT SUPP.RECT RC PRN (05:00)
[2024-08-08] MEDS ORDERED: ACETAMINOPHEN ES 500 MG TABLET PO PRN ×2 (05:00)
[2024-08-08] MEDS ORDERED: cetrizine 10 MG TABLET PO PRN (05:00)
[2024-08-08] MEDS ORDERED: MAGNESIUM HYDROXIDE 30 ML UDC PO PRN (05:00)
[2024-08-08] MEDS: NOREPINEPHRINE 8 MG in IV D5W 242 ML IV PRN (05:30)
[2024-08-08 08:17] LABS: HEMOGLOBIN 9.1 g/dL (11.5-14.8); LYMPHOCYTES # (AUTO) 0.4 K/uL (0.8-4.8); MONOCYTES # (AUTO) 0.6 K/uL (0.1-1.30)
[2024-08-08 08:23] LABS: BASOPHILS % (AUTO) 0.3 % (0.0-2.0); HEMATOCRIT 28 % (33-45); LYMPHOCYTES % (AUTO) 4.5 % (20.0-44.0); MEAN CORPUSCULAR HEMOGLOBIN 31 PG (26.0-33.0); MEAN CORPUSCULAR HGB CONC 32 g/dl (31.0-36.0); MEAN CORPUSCULAR VOLUME 95 fL (82-100); MONOCYTES % (AUTO) 6.9 % (2.0-12.0); NEUTROPHILS # (AUTO) 7.9 K/uL (1.8-8.9); NEUTROPHILS % (AUTO) 88.3 % (43.0-81.0); PLATELET COUNT (AUTO) 147 K/uL (150-450); RED BLOOD CELL COUNT(AUTO) 2.99 MIL/uL (4.0-5.2); RED CELL DISTRIBUTION WIDTH 21.5 % (11.5-15.0); WHITE BLOOD COUNT (AUTO) 8.9 K/uL (4.3-11.0)
[2024-08-08 08:27] LABS: CALCIUM, SERUM 8.4 mg/dL (8.5-10.1); CARBON DIOXIDE 26 mmol/L (21-32); CHLORIDE 106 mmol/L (98-107); CREATININE 0.4 mg/dL (0.6-1.3); GLUCOSE 99 mg/dL (74-106); SODIUM SERUM 142 mmol/L (136-145); UREA NITROGEN, BLOOD 16 mg/dL (7-18)
[2024-08-08] MEDS: QUETIAPINE FUMARATE 25 MG TABLET PO SCH (08:32)
[2024-08-08] MEDS: METOPROLOL TARTRATE 25 MG TABLET PO SCH (08:32)
[2024-08-08] MEDS: MIDODRINE HCL (5MG) 5 MG TABLET GT SCH (08:32)
[2024-08-08] MEDS: GABAPENTIN 100 MG CAPSULE PO SCH (08:32)
[2024-08-08 10:31] LABS: BAND % (MANUAL) 14 % (0.0-5.0); LYMPHOCYTES % (MANUAL) 8 % (16-48); MONOCYTES % (MANUAL) 4 % (0-11.0); NEUTROPHILS % (MANUAL) 74 (42-76)
[2024-08-08 10:32] LABS: PLATELET ESTIMATE ADEQUATE
[2024-08-08 10:33] LABS: ANISOCYTOSIS 1+
[2024-08-08] MEDS: POTASSIUM CHLORIDE 20 MEQ POWDER PACKET NG SCH (10:51)
[2024-08-08] MEDS ORDERED: MIDODRINE HCL (5MG) 5 MG TABLET PO SCH (13:00)
[2024-08-08] MEDS: CEFEPIME 1 GM in IV D5W 50 ML IV SCH (21:15)
[2024-08-08] MEDS: IV NS 0.9% 250 ML IV PRN (21:31)
[2024-08-08] MEDS: VANCOMYCIN 1 GM in IV D5W 250 ML IV ONE (22:01)
[2024-08-09] VITALS (69 sets, daily range): BP systolic 88–136; BP diastolic 37–71; TEMP 97.9–98; O2SAT 97–100
[2024-08-09 05:07] LABS: CALCIUM, SERUM 8.1 mg/dL (8.5-10.1); CARBON DIOXIDE 28 mmol/L (21-32); CHLORIDE 109 mmol/L (98-107); CREATININE 0.3 mg/dL (0.6-1.3); GLUCOSE 125 mg/dL (74-106); POTASSIUM 3.7 mmol/L (3.5-5.1); SODIUM SERUM 143 mmol/L (136-145); UREA NITROGEN, BLOOD 18 mg/dL (7-18)
[2024-08-09] MEDS ORDERED: MAGNESIUM HYDROXIDE 30 ML UDC GT PRN (07:35)
[2024-08-09] MEDS ORDERED: ACETAMINOPHEN ES 500 MG TABLET GT PRN ×2 (07:36)
[2024-08-09] MEDS ORDERED: cetrizine 10 MG TABLET GT PRN (07:37)
[2024-08-09] MEDS: METOPROLOL TARTRATE 25 MG TABLET GT SCH (08:37)
[2024-08-09] MEDS: GABAPENTIN 100 MG CAPSULE GT SCH (08:38)
[2024-08-09] MEDS: QUETIAPINE FUMARATE 25 MG TABLET GT SCH (08:38)
[2024-08-09] MEDS: VANCOMYCIN 750 MG in IV D5W 250 ML IV SCH (10:00)
[2024-08-10] VITALS (16 sets, daily range): BP systolic 94–133; BP diastolic 50–88; TEMP 96.8–97.7; O2SAT 99–100
[2024-08-10 04:11] LABS: BASOPHILS % (AUTO) 0.4 % (0.0-2.0); EOSINOPHILS % (AUTO) 0.3 % (0.0-6.0); HEMATOCRIT 24 % (33-45); HEMOGLOBIN 7.9 g/dL (11.5-14.8); LYMPHOCYTES # (AUTO) 0.8 K/uL (0.8-4.8); LYMPHOCYTES % (AUTO) 12.2 % (20.0-44.0); MEAN CORPUSCULAR HEMOGLOBIN 30 PG (26.0-33.0); MEAN CORPUSCULAR HGB CONC 33 g/dl (31.0-36.0); MEAN CORPUSCULAR VOLUME 93 fL (82-100); MONOCYTES # (AUTO) 0.2 K/uL (0.1-1.30); MONOCYTES % (AUTO) 3.3 % (2.0-12.0); NEUTROPHILS # (AUTO) 5.4 K/uL (1.8-8.9); NEUTROPHILS % (AUTO) 83.8 % (43.0-81.0); PLATELET COUNT (AUTO) 73 K/uL (150-450); RED BLOOD CELL COUNT(AUTO) 2.62 MIL/uL (4.0-5.2); RED CELL DISTRIBUTION WIDTH 20.6 % (11.5-15.0); WHITE BLOOD COUNT (AUTO) 6.4 K/uL (4.3-11.0)
[2024-08-10 04:32] LABS: CALCIUM, SERUM 7.7 mg/dL (8.5-10.1); CARBON DIOXIDE 27 mmol/L (21-32); CHLORIDE 108 mmol/L (98-107); CREATININE 0.3 mg/dL (0.6-1.3); GLUCOSE 107 mg/dL (74-106); MAGNESIUM 1.7 mg/dL (1.8-2.4); PHOSPHORUS 2.1 mg/dL (2.5-4.9); SODIUM SERUM 141 mmol/L (136-145); UREA NITROGEN, BLOOD 18 mg/dL (7-18)
[2024-08-10 05:50] LABS: ANISOCYTOSIS 1+; BAND % (MANUAL) 4 % (0.0-5.0); EOSINOPHILS % (MANUAL) 1 % (0-4); LYMPHOCYTES % (MANUAL) 17 % (16-48); MONOCYTES % (MANUAL) 7 % (0-11.0); NEUTROPHILS % (MANUAL) 71 (42-76); PLATELET ESTIMATE DECREASED
[2024-08-10 05:51] LABS: OVALOCYTES 1+
[2024-08-10] MEDS: ENOXAPARIN SODIUM 60 MG/0.6 ML DISP.SYRIN SQ SCH (07:04)
[2024-08-10] MEDS: POTASSIUM CHLORIDE 20 MEQ POWDER PACKET NG SCH (09:40)
[2024-08-10] MEDS: MAGNESIUM OXIDE 400 MG TABLET PO ONE (09:40)
[2024-08-10 10:16] LABS: BASOPHILS % (AUTO) 0.3 % (0.0-2.0); EOSINOPHILS % (AUTO) 0.3 % (0.0-6.0); HEMATOCRIT 27 % (33-45); HEMOGLOBIN 8.8 g/dL (11.5-14.8); LYMPHOCYTES # (AUTO) 0.4 K/uL (0.8-4.8); LYMPHOCYTES % (AUTO) 4.6 % (20.0-44.0); MEAN CORPUSCULAR HEMOGLOBIN 30 PG (26.0-33.0); MEAN CORPUSCULAR HGB CONC 32 g/dl (31.0-36.0); MEAN CORPUSCULAR VOLUME 92 fL (82-100); MONOCYTES # (AUTO) 0.2 K/uL (0.1-1.30); MONOCYTES % (AUTO) 2.6 % (2.0-12.0); NEUTROPHILS # (AUTO) 8.2 K/uL (1.8-8.9); NEUTROPHILS % (AUTO) 92.2 % (43.0-81.0); PLATELET COUNT (AUTO) 90 K/uL (150-450); RED BLOOD CELL COUNT(AUTO) 2.94 MIL/uL (4.0-5.2); RED CELL DISTRIBUTION WIDTH 20.9 % (11.5-15.0); WHITE BLOOD COUNT (AUTO) 8.9 K/uL (4.3-11.0)
[2024-08-10 10:36] LABS: PLATELET ESTIMATE DECREASED
[2024-08-10 10:37] LABS: LYMPHOCYTES % (MANUAL) 4 % (16-48); MONOCYTES % (MANUAL) 2 % (0-11.0)
[2024-08-10 10:38] LABS: BAND % (MANUAL) 6 % (0.0-5.0); NEUTROPHILS % (MANUAL) 88 (42-76)
[2024-08-10 10:41] LABS: ANISOCYTOSIS 1+
[2024-08-10] MEDS: ERYTHROMYCIN BASE OPHTH 3.5 GM TUBE EACHEYE SCH (13:49)
[2024-08-10] MEDS: NEUTRA PHOS 1 POWD.PACKET GT ONE (15:27)
[2024-08-10] MEDS: SOD FERRIC GLUC 125 MG in IV NS 0.9% 100 ML IV SCH (17:45)
[2024-08-10 18:45] LABS: D-DIMER 0.66 mg/L(FEU (0.17-0.50); INR 1.09 (0.91-1.10); PARTIAL THROMBOPLASTIN TIME 31.5 SEC (24.3-34.3); PROTHROMBIN TIME 11.5 SECS (9.2-11.1)
[2024-08-10 18:47] LABS: BILIRUBIN,DIRECT 0.1 mg/dL (0.0-0.2); BILIRUBIN,TOTAL 0.2 mg/dL (0.2-1.0)
[2024-08-10 18:52] LABS: RHEUMATOID FACTOR SCREEN NEGATIVE (NEGATIVE)
[2024-08-10] MEDS ORDERED: ENOXAPARIN SODIUM 60 MG/0.6 ML DISP.SYRIN SQ SCH (21:00)
[2024-08-10] MEDS: VANCOMYCIN 1 GM in IV D5W 250 ML IV SCH (22:49)
[2024-08-11] VITALS: BP 116/80; TEMP 97.7; O2SAT 100
[2024-08-11 04:00] VITALS: BP 107/83; TEMP 97.9; O2SAT 100
[2024-08-11 08:00] VITALS: BP 106/77; TEMP 97.3; O2SAT 100
[2024-08-11 10:57] LABS: BASOPHILS % (AUTO) 0.5 % (0.0-2.0); EOSINOPHILS % (AUTO) 0.4 % (0.0-6.0); HEMATOCRIT 27 % (33-45); HEMOGLOBIN 8.8 g/dL (11.5-14.8); LYMPHOCYTES # (AUTO) 0.6 K/uL (0.8-4.8); LYMPHOCYTES % (AUTO) 8.2 % (20.0-44.0); MEAN CORPUSCULAR HEMOGLOBIN 31 PG (26.0-33.0); MEAN CORPUSCULAR HGB CONC 33 g/dl (31.0-36.0); MEAN CORPUSCULAR VOLUME 92 fL (82-100); MONOCYTES # (AUTO) 0.2 K/uL (0.1-1.30); MONOCYTES % (AUTO) 2.4 % (2.0-12.0); NEUTROPHILS # (AUTO) 6.3 K/uL (1.8-8.9); NEUTROPHILS % (AUTO) 88.5 % (43.0-81.0); PLATELET COUNT (AUTO) 89 K/uL (150-450); RED BLOOD CELL COUNT(AUTO) 2.89 MIL/uL (4.0-5.2); WHITE BLOOD COUNT (AUTO) 7.2 K/uL (4.3-11.0)
[2024-08-11 11:18] LABS: CALCIUM, SERUM 8.1 mg/dL (8.5-10.1); CARBON DIOXIDE 24 mmol/L (21-32); CHLORIDE 107 mmol/L (98-107); CREATININE 0.4 mg/dL (0.6-1.3); GLUCOSE 148 mg/dL (74-106); MAGNESIUM 1.9 mg/dL (1.8-2.4); PHOSPHORUS 2.4 mg/dL (2.5-4.9); POTASSIUM 3.6 mmol/L (3.5-5.1); SODIUM SERUM 141 mmol/L (136-145); UREA NITROGEN, BLOOD 12 mg/dL (7-18)
[2024-08-11 12:00] VITALS: BP 110/67; TEMP 97.2; O2SAT 99
[2024-08-11 12:36] LABS: BASOPHILS % (MANUAL) 0 % (0.0-2.0); EOSINOPHILS % (MANUAL) 0 % (0-4); LYMPHOCYTES % (MANUAL) 10 % (16-48); MONOCYTES % (MANUAL) 6 % (0-11.0); NEUTROPHILS % (MANUAL) 84 (42-76)
[2024-08-11 12:37] LABS: PLATELET ESTIMATE DECREASED
[2024-08-11] MEDS: NEUTRA PHOS 1 POWD.PACKET GT ONE (15:50)
[2024-08-11 16:00] VITALS: BP 121/53; TEMP 98.8; O2SAT 97
[2024-08-11] MEDS ORDERED: GABA100C GT (16:50)
[2024-08-11] MEDS ORDERED: ERYT3.5O9 EACHEYE (16:50)
[2024-08-11] MEDS ORDERED: FERR325T28 GT (16:50)
[2024-08-11] MEDS ORDERED: IPRA0.2S9 NEB (16:50)
[2024-08-11] MEDS ORDERED: METO25TA20 GT (16:51)
[2024-08-11] MEDS ORDERED: MIDO5TAB4 GT (16:51)
[2024-08-11 20:00] VITALS: BP 150/64; TEMP 97.9; O2SAT 96
[2024-08-12 08:11] LABS: HEPATITIS B SURFACE AB Non Reactive (.); IMMUNOGLOBULIN A, SERUM 190 mg/dL (64-422); IMMUNOGLOBULIN G, SERUM 707 mg/dL (586-1602); IMMUNOGLOBULIN M, SERUM 142 mg/dL (26-217)
[2024-08-12 17:07] LABS: *ANA ANTI-CENTROMERE B AB <0.2 AI (0.0-0.9); *ANA ANTI-DNA(DS) AB, QN <1 IU/mL (0-9); *ANA ANTI-JO-1 <0.2 AI (0.0-0.9); *ANA ANTICHROMATIN ANTIBODY 0.2 AI (0.0-0.9); *ANA RNP ANTIBODIES <0.2 AI (0.0-0.9); *ANA SJOGREN'S ANTI-SS-A <0.2 AI (0.0-0.9); *ANA SJOGREN'S ANTI-SS-B <0.2 AI (0.0-0.9); *ANAANTI-SCLERODERMA-70 AB <0.2 AI (0.0-0.9); *ANASMITH AB <0.2 AI (0.0-0.9)
== END 2024-08-11 21:30 | DRG 4 ==
LOC: ER 14:09 → ICU 16:09 → TELE-TD 07-28 09:07 → TELE1 07-29 18:10 → ICU 08-08 05:15 → TELE1 08-10 12:02
PROVIDERS: ADMIT Nurse Practitioner Acute Care; ATTEND Student in an Organized Health Care Education/Training Program
PROC: 5A1955Z Respiratory Ventilation, Greater than 96 Consecutive Hours (ICD-10-PCS; principal; 2024-07-16)
PROC: 0BH17EZ Insertion of Endotracheal Airway into Trachea, Via Natural or Artificial Opening (ICD-10-PCS; 2024-07-16)
PROC: 5A2204Z Restoration of Cardiac Rhythm, Single (ICD-10-PCS; 2024-07-16)
PROC: 0B113F4 Bypass Trachea to Cutaneous with Tracheostomy Device, Percutaneous Approach (ICD-10-PCS; 2024-07-27)
PROC: 0BJ08ZZ Inspection of Tracheobronchial Tree, Via Natural or Artificial Opening Endoscopic (ICD-10-PCS; 2024-07-27)
PROC: 0DH63UZ Insertion of Feeding Device into Stomach, Percutaneous Approach (ICD-10-PCS; 2024-08-03)
DX: A41.9 Sepsis, unspecified organism (principal); G92.8 Other toxic encephalopathy; J69.0 Pneumonitis due to inhalation of food and vomit; J96.01 Acute respiratory failure with hypoxia; R65.21 Severe sepsis with septic shock; D61.89 Other specified aplastic anemias and other bone marrow failure syndromes; R53.2 Functional quadriplegia; N39.0 Urinary tract infection, site not specified; E44.0 Moderate protein-calorie malnutrition; J94.2 Hemothorax; D68.59 Other primary thrombophilia; I42.9 Cardiomyopathy, unspecified; G93.1 Anoxic brain damage, not elsewhere classified; F03.94 Unspecified dementia, unspecified severity, with anxiety; F03.918 Unspecified dementia, unspecified severity, with other behavioral disturbance; E87.0 Hyperosmolality and hypernatremia; N17.9 Acute kidney failure, unspecified; Z99.11 Dependence on respirator [ventilator] status; D61.818 Other pancytopenia; E87.1 Hypo-osmolality and hyponatremia; E87.20 Acidosis, unspecified; I47.10 Supraventricular tachycardia, unspecified; I82.611 Acute embolism and thrombosis of superficial veins of right upper extremity; J98.11 Atelectasis; J90 Pleural effusion, not elsewhere classified; B96.89 Other specified bacterial agents as the cause of diseases classified elsewhere; E78.5 Hyperlipidemia, unspecified; G80.9 Cerebral palsy, unspecified; I50.9 Heart failure, unspecified; I11.0 Hypertensive heart disease with heart failure; F41.9 Anxiety disorder, unspecified; F20.9 Schizophrenia, unspecified; Z79.01 Long term (current) use of anticoagulants; Z79.890 Hormone replacement therapy; Z79.899 Other long term (current) drug therapy; E86.1 Hypovolemia; E03.9 Hypothyroidism, unspecified; D69.59 Other secondary thrombocytopenia; M89.8X9 Other specified disorders of bone, unspecified site; K29.70 Gastritis, unspecified, without bleeding; R13.10 Dysphagia, unspecified; Y95 Nosocomial condition; Z93.0 Tracheostomy status; Z93.1 Gastrostomy status; D50.9 Iron deficiency anemia, unspecified; E83.39 Other disorders of phosphorus metabolism; E83.42 Hypomagnesemia; E86.0 Dehydration; E87.6 Hypokalemia; E88.09 Other disorders of plasma-protein metabolism, not elsewhere classified; I48.91 Unspecified atrial fibrillation; R62.50 Unspecified lack of expected normal physiological development in childhood; Z87.81 Personal history of (healed) traumatic fracture
CPT/HCPCS: 31720; 36415; 36600; 43246; 70450-TC; 71045-TC; 73552; 76700-TC; 80048-TC; 80061-TC; 80076-TC; 80202-TC; 81001; 82247-TC; 82248-TC; 82533; 82607-TC; 82728-TC; 82784; 82803-TC; 82962-TC; 83010; 83540-TC; 83605-TC; 83615-TC; 83735-TC; 83921; 84100-TC; 84155; 84165; 84425; 84439-TC; 84443-TC; 84484-TC; 85025-TC; 85045-TC; 85378-TC; 85396; 85730-TC; 86225; 86235; 86334; 86431-TC; 86706; 86803; 86880-TC; 87040-TC; 87081-TC; 87086-TC; 87340; 93307-TC; 93971-TC; 94003-TC; 94760-TC; 94762-TC; 94799-TC; 95819-TC; A4223; A4623; A4629; A6253; A6403; A7526; A9563; C1769; G0378; J0171; J0282; J0692; J1650; J1720; J1815; J2003; J2250; J2704; J2916; J3010; J3370; J3371; J3480; J3490; J7030; J7042; J7050; J7060; J7120

== ENCOUNTER 2025-08-13 18:23 | Inpatient (IN) | payer MEDICARE, OTHER ==
[~2025-08-13] VITALS: Ht 167.6 cm; Wt 59.0 kg
[2025-08-13] VITALS (9 sets, daily range): BP systolic 84–95; BP diastolic 45–55; TEMP 100.5; O2SAT 93–100
[~2025-08-13 18:23] MED LIST: ACET-2030 PO; AMIN30LI66 GT; ASCO500T10 PO; BISA10SU11 RC; CALC-770 PO; CETI-90 GT; DOCU100T2 GT; ERYT3.5O9 EACHEYE; FERR325T28 GT; FERR325T28 PO; FOLI0.4T6 GT; GABA-532 GT; GABA100C GT; IPRA0.2S9 NEB; LEVO88TA5 GT; MAGN400O6 GT; METO25TA20 GT; METO25TA6 GT; MIDO5TAB4 GT; MULT-213 PO; NA P133E RC; POLY17PO4 GT; QUET25TA PO; VALP250S4 PO
[2025-08-13] MEDS: IV NS 0.9% 1,000 ML BAG IV ONE (19:00)
[2025-08-13] MEDS ORDERED: ASCO500L2 GT (19:09)
[2025-08-13] MEDS ORDERED: METO5SOL GT (19:09)
[2025-08-13] MEDS ORDERED: ZINC GT (19:09)
[2025-08-13] MEDS ORDERED: CRAN3875 GT (19:09)
[2025-08-13] MEDS ORDERED: ACET160L44 GT (19:09)
[2025-08-13] MEDS ORDERED: CHLO473M5 PO (19:09)
[2025-08-13] MEDS ORDERED: IBUP-1957 GT (19:09)
[2025-08-13] MEDS ORDERED: DIVA125C2 GT (19:09)
[2025-08-13] MEDS ORDERED: MULT9LIQ6 GT (19:09)
[2025-08-13] MEDS ORDERED: TRIA15CR4 TP (19:09)
[2025-08-13] MEDS ORDERED: LACT-209 GT (19:09)
[2025-08-13] MEDS ORDERED: CALC-953 GT (19:09)
[2025-08-13] MEDS ORDERED: FERR220E2 GT (19:09)
[2025-08-13] MEDS ORDERED: IPRA0.2S9 IH (19:09)
[2025-08-13] MEDS ORDERED: METH1TAB GT (19:09)
[2025-08-13] MEDS ORDERED: ONDA-97 GT (19:09)
[2025-08-13 19:18] LABS: PLATELET COUNT (AUTO) 691 K/uL (150-450); RED BLOOD CELL COUNT(AUTO) 3.38 MIL/uL (4.0-5.2); RED CELL DISTRIBUTION WIDTH 18.8 % (11.5-15.0); WHITE BLOOD COUNT (AUTO) 9.3 K/uL (4.3-11.0)
[2025-08-13] MEDS ORDERED: PIPERACI/TAZO 3.375GM/D5W 50ML PB IV ONE (19:20)
[2025-08-13] MEDS ORDERED: VANCOMYCIN 1 GM /D5W 250 ML PB IV ONE (19:21)
[2025-08-13] MEDS ORDERED: ACETAMINOPHEN 325 MG/SUPP.RECT RC ONE (19:26)
[2025-08-13 19:29] LABS: INR 1.08 (0.91-1.10)
[2025-08-13 19:30] LABS: CALCIUM, SERUM 8.4 mg/dL (8.5-10.1); CREATININE 0.7 mg/dL (0.6-1.3); SODIUM SERUM 138 mmol/L (136-145); UREA NITROGEN, BLOOD 36 mg/dL (7-18)
[2025-08-13] MEDS: ACETAMINOPHEN 650 MG/SUPP.RECT RC ONE (19:30)
[2025-08-13] MEDS: PIPERACILLIN /TAZOBACTAM 3.375 G in IV D5W 50 ML IV ONE (19:30)
[2025-08-13 19:37] LABS: LACTIC ACID 3.8 mmol/L (0.4-2.0)
[2025-08-13 19:42] LABS: ASPARTATE AMINOTRANSFERASE 14 U/L (15-37); TOTAL PROTEIN, SERUM 6.3 g/dL (6.4-8.2)
[2025-08-13 20:15] LABS: APPEARANCE,URINE CLOUDY (CLEAR); BLOOD, URINE 1+ Ery/uL (NEGATIVE); LEUKOCYTE ESTERASE ,URINE 2+ (NEGATIVE); NITRITE, URINE NEGATIVE (NEGATIVE); UGLUCOSE NEGATIVE (NEGATIVE)
[2025-08-13] MEDS: VANCOMYCIN 1 GM in IV D5W 250 ML IV ONE (20:20)
[2025-08-13] MEDS ORDERED: Medication Not On Formulary EA (Acetaminophen 20 ML) GT PRN (20:30)
[2025-08-13] MEDS ORDERED: Z GUARD REMEDY 4 OZ OINT TP PRN (20:30)
[2025-08-13] MEDS ORDERED: MAG HYDROX/AL HYDROX/SIMETH 30 ML UDC PO PRN (20:30)
[2025-08-13] MEDS ORDERED: MAGNESIUM HYDROXIDE 30 ML UDC GT PRN (20:30)
[2025-08-13] MEDS ORDERED: DOSING PER PHARMACY-VANCOMYCIN IV XX PRN (20:30)
[2025-08-13] MEDS ORDERED: MAGNESIUM HYDROXIDE 30 ML UDC PO PRN (20:30)
[2025-08-13 20:32] LABS: ADD URINE CULTURE YES
[2025-08-13 20:38] LABS: SQUAMOUS EPITHELIAL CELL,UR Few /HPF (None Seen)
[2025-08-13] MEDS: IV NS 0.9% 1,000 ML IV PRN (21:59)
[2025-08-13] MEDS: CHLORHEXIDINE GLUCONATE 15 ML UDC MM SCH (22:52)
[2025-08-13] MEDS: PHENYLEPHRINE 50 MG in IV NS 0.9% 245 ML IV PRN (23:13)
[2025-08-13 23:58] LABS: ABG BASE EXCESS -1.4 mmol/L (-2.0-3.0); ABG OXYGEN SATURATION 97.5 % (94.0-98.0); ABG PCO2 27.8 mmHg (32.0-45.0); ABG PH 7.496 (7.350-7.450); ABG PO2 98.0 mmHg (83.0-108.0); ABG TOTAL HEMOGLOBIN 10.5 G/dL (12.0-16.0); FRACTIONATED INSPIRED OXYGEN 100.0 %; PEEP,BG 5 cm H2O; SET RATE, BG 18.0; SITE, ABG LEFT RADIAL; VT, ABG 450 mL
[2025-08-14] VITALS (97 sets, daily range): BP systolic 71–123; BP diastolic 27–78; TEMP 98.8–103; O2SAT 95–100
[2025-08-14] MEDS ORDERED: PIPERACILLIN /TAZOBACTAM 3.375 G in IV D5W 50 ML IV SCH
[2025-08-14] MEDS: ACETAMINOPHEN 325 MG TABLET PO PRN (00:01)
[2025-08-14] MEDS: ZOSYN IVPB 3.375 G in IV D5W 50ml IV ONE (00:16)
[2025-08-14] MEDS: JEVITY 1.2 CAL 1,000 ML BOTTLE GT SCH (03:22)
[2025-08-14] MEDS: PIPERACI/TAZO 3.375GM/D5W 50ML PB IV ONE (03:42)
[2025-08-14] MEDS: PHENYLEPHRINE 10 MG/ML VIAL ONE ×2 (03:42→04:35)
[2025-08-14] MEDS: NOREPINEPHRINE 8MG/250ML RTU 250 ML IV ONE (03:49)
[2025-08-14] MEDS: NOREPINEPHRINE 8 MG in IV NS 0.9% 242 ML IV PRN (04:05)
[2025-08-14 05:31] LABS: PLATELET COUNT (AUTO) 653 K/uL (150-450); RED BLOOD CELL COUNT(AUTO) 3.13 MIL/uL (4.0-5.2); RED CELL DISTRIBUTION WIDTH 18.6 % (11.5-15.0); WHITE BLOOD COUNT (AUTO) 18.0 K/uL (4.3-11.0)
[2025-08-14 06:02] LABS: ASPARTATE AMINOTRANSFERASE 20 U/L (15-37); CALCIUM, SERUM 7.8 mg/dL (8.5-10.1); CREATININE 0.7 mg/dL (0.6-1.3); PHOSPHORUS 3.0 mg/dL (2.5-4.9); SODIUM SERUM 139 mmol/L (136-145); TOTAL PROTEIN, SERUM 5.5 g/dL (6.4-8.2); UREA NITROGEN, BLOOD 32 mg/dL (7-18)
[2025-08-14 06:26] LABS: LYMPHOCYTES % (MANUAL) 10 % (16-48); MONOCYTES % (MANUAL) 3 % (0-11.0); NEUTROPHILS % (MANUAL) 87 (42-76); PLATELET ESTIMATE INCREASED
[2025-08-14] MEDS: HYDROCORTISONE SOD SUCCINATE 100 MG/2 ML VIAL IV SCH (06:59)
[2025-08-14] MEDS: CALCIUM CARB 600MG /VIT D 1 EACH TABLET GT SCH (08:22)
[2025-08-14] MEDS: FOLIC ACID 1 MG TABLET GT SCH (08:22)
[2025-08-14] MEDS: DIVALPROEX SODIUM 125 MG CAP.SPRINK GT SCH (08:22)
[2025-08-14] MEDS: DOCUSATE SODIUM LIQ 100 MG/10 ML UDC GT SCH (08:22)
[2025-08-14] MEDS: FERROUS SULFATE UDC 300 MG/5 ML UDC GT SCH (08:22)
[2025-08-14] MEDS: METOPROLOL TARTRATE 25 MG TABLET GT SCH (08:23)
[2025-08-14] MEDS: PIPERACILLIN /TAZOBACTAM 3.375 G in IV D5W 100 ML IV SCH (08:34)
[2025-08-14] MEDS: ASCORBIC ACID 500 MG TABLET GT SCH (08:37)
[2025-08-14] MEDS: DAKINS QUARTER STRENGTH (0.125%) 480 ML BOTTLE TOP SCH (08:37)
[2025-08-14] MEDS: MULTIVIT W/MINERALS 1 TAB TABLET GT SCH (08:40)
[2025-08-14] MEDS: METOCLOPRAMIDE HCL 10 MG/10 ML UDC GT SCH (08:41)
[2025-08-14] MEDS ORDERED: METHENAMINE HIPPURATE 1 GM GT SCH ×3 (09:00)
[2025-08-14] MEDS ORDERED: Medication Not On Formulary EA (Cran/Vitc/Mannose/Inulin/Brom (Uti-Stat Liquid) 30 ML) GT SCH (09:00)
[2025-08-14] MEDS: LEVOTHYROXINE SODIUM 88 MCG TABLET GT SCH (09:01)
[2025-08-14] MEDS: VANCOMYCIN 750 MG in IV D5W 250 ML IV SCH (09:11)
[2025-08-14] MEDS: POTASSIUM CHLORIDE 20 MEQ POWDER PACKET GT ONE (10:18)
[2025-08-14] MEDS: IPRATROPIUM NEB FS 0.5 MG/2.5 ML AMPUL.NEB IH SCH ×2 (12:52)
[2025-08-14 13:36] LABS: LACTIC ACID 4.0 mmol/L (0.4-2.0)
[2025-08-14] MEDS: POLYETHYLENE GLYCOL 3350 17 GM POWD.PACK GT SCH (17:21)
[2025-08-15] VITALS (95 sets, daily range): BP systolic 86–142; BP diastolic 44–117; TEMP 98.7–99.7; O2SAT 90–100
[2025-08-15 04:19] LABS: PLATELET COUNT (AUTO) 642 K/uL (150-450); RED BLOOD CELL COUNT(AUTO) 2.96 MIL/uL (4.0-5.2); RED CELL DISTRIBUTION WIDTH 18.9 % (11.5-15.0)
[2025-08-15 04:31] LABS: CALCIUM, SERUM 8.3 mg/dL (8.5-10.1); CREATININE 0.8 mg/dL (0.6-1.3); PHOSPHORUS 2.4 mg/dL (2.5-4.9); SODIUM SERUM 141.0 mmol/L (136-145); UREA NITROGEN, BLOOD 26.0 mg/dL (7-18)
[2025-08-15 05:18] LABS: WHITE BLOOD COUNT (AUTO) 35.9 K/uL (4.3-11.0)
[2025-08-15 05:40] LABS: LYMPHOCYTES % (MANUAL) 1 % (16-48); MONOCYTES % (MANUAL) 4 % (0-11.0); NEUTROPHILS % (MANUAL) 95 (42-76); PLATELET ESTIMATE INCREASED
[2025-08-15] MEDS: ONDANSETRON HCL/PF 4 MG/2 ML VIAL IVP PRN (14:47)
[2025-08-15] MEDS: NEUTRA PHOS 1 POWD.PACKET GT ONE (16:26)
[2025-08-15] MEDS: VANCOMYCIN HCL 125 MG/2.5 ML ORAL.SUSP PO SCH (17:07)
[2025-08-15] MEDS: MEROPENEM 1 G in IV NS 0.9% 100 ML IV SCH (17:51)
[2025-08-16] VITALS (94 sets, daily range): BP systolic 80–125; BP diastolic 49–74; TEMP 98–98.7; O2SAT 89–100
[2025-08-16 05:02] LABS: PLATELET COUNT (AUTO) 475 K/uL (150-450); RED BLOOD CELL COUNT(AUTO) 2.63 MIL/uL (4.0-5.2); RED CELL DISTRIBUTION WIDTH 18.7 % (11.5-15.0); WHITE BLOOD COUNT (AUTO) 24.0 K/uL (4.3-11.0)
[2025-08-16 06:10] LABS: ASPARTATE AMINOTRANSFERASE 15 U/L (15-37); CALCIUM, SERUM 7.9 mg/dL (8.5-10.1); CREATININE 0.9 mg/dL (0.6-1.3); LYMPHOCYTES % (MANUAL) 2 % (16-48); MONOCYTES % (MANUAL) 2 % (0-11.0); NEUTROPHILS % (MANUAL) 96 (42-76); NT-PRO BNP 6333 pg/mL (0-125); PHOSPHORUS 2.5 mg/dL (2.5-4.9); SODIUM SERUM 144 mmol/L (136-145); TOTAL PROTEIN, SERUM 5.2 g/dL (6.4-8.2); UREA NITROGEN, BLOOD 25 mg/dL (7-18)
[2025-08-16 06:19] LABS: PLATELET ESTIMATE INCREASED
[2025-08-16] MEDS: POTASSIUM CHLORIDE 20 MEQ POWDER PACKET GT ONE (11:05)
[2025-08-16] MEDS: METOCLOPRAMIDE HCL 10 MG/10 ML UDC GT SCH (12:18)
[2025-08-16 16:04] LABS: HIV-1/2 ANTIBODY NON REACTIVE (NONREACTIVE)
[2025-08-17] VITALS (31 sets, daily range): BP systolic 93–119; BP diastolic 50–79; TEMP 97.3–98; O2SAT 89–99
[2025-08-17 03:50] LABS: PLATELET COUNT (AUTO) 514 K/uL (150-450); RED BLOOD CELL COUNT(AUTO) 3.03 MIL/uL (4.0-5.2); RED CELL DISTRIBUTION WIDTH 19.0 % (11.5-15.0); WHITE BLOOD COUNT (AUTO) 17.3 K/uL (4.3-11.0)
[2025-08-17 04:02] LABS: CALCIUM, SERUM 8.2 mg/dL (8.5-10.1); CREATININE 0.7 mg/dL (0.6-1.3); PHOSPHORUS 2.7 mg/dL (2.5-4.9); SODIUM SERUM 143.0 mmol/L (136-145); UREA NITROGEN, BLOOD 24.0 mg/dL (7-18)
[2025-08-17] MEDS: PROSOURCE / PROSTAT (PYXIS) 30 ML UDC GT SCH (16:32)
[2025-08-17] MEDS ORDERED: VANCOMYCIN 750 MG in IV D5W 250 ML IV SCH (21:00)
[2025-08-18] VITALS: BP 115/60; TEMP 98.1; O2SAT 100
[2025-08-18 04:00] VITALS: BP 113/62; TEMP 97.7; O2SAT 100
[2025-08-18 06:21] LABS: PLATELET COUNT (AUTO) 496 K/uL (150-450); RED BLOOD CELL COUNT(AUTO) 3.21 MIL/uL (4.0-5.2); RED CELL DISTRIBUTION WIDTH 18.5 % (11.5-15.0); WHITE BLOOD COUNT (AUTO) 7.8 K/uL (4.3-11.0)
[2025-08-18 06:53] LABS: ASPARTATE AMINOTRANSFERASE 15.0 U/L (15-37); CALCIUM, SERUM 7.9 mg/dL (8.5-10.1); CREATININE 0.7 mg/dL (0.6-1.3); PHOSPHORUS 2.9 mg/dL (2.5-4.9); SODIUM SERUM 142.0 mmol/L (136-145); TOTAL PROTEIN, SERUM 5.3 g/dL (6.4-8.2); UREA NITROGEN, BLOOD 30.0 mg/dL (7-18)
[2025-08-18 08:00] VITALS: BP 128/72; TEMP 98.6; O2SAT 94
[2025-08-18 11:53] LABS: LYMPHOCYTES % (MANUAL) 3 % (16-48); MYELOCYTES % 1 % (0-0); NEUTROPHILS % (MANUAL) 96 (42-76); PLATELET ESTIMATE INCREASED
[2025-08-18 12:00] VITALS: BP 113/74; TEMP 97.7; O2SAT 95
[2025-08-18 16:00] VITALS: BP 106/70; TEMP 97.3; O2SAT 97
[2025-08-18] MEDS: JEVITY 1.2 CAL 1,000 ML BOTTLE GT SCH (19:47)
[2025-08-18 20:00] VITALS: BP_SYST 100; BP_SYST 122; BP_DIAS 64; BP_DIAS 71; TEMP 98.5; O2SAT 95
[2025-08-19] VITALS: BP 105/85; TEMP 98.6; O2SAT 96
[2025-08-19 04:00] VITALS: BP 116/69; TEMP 97.9; O2SAT 95
[2025-08-19 08:00] VITALS: BP 107/68; TEMP 98.6; O2SAT 99
[2025-08-19 12:00] VITALS: BP 120/76; TEMP 97.4; O2SAT 99
[2025-08-19 12:14] LABS: PLATELET COUNT (AUTO) 477 K/uL (150-450); RED BLOOD CELL COUNT(AUTO) 3.18 MIL/uL (4.0-5.2); RED CELL DISTRIBUTION WIDTH 18.2 % (11.5-15.0); WHITE BLOOD COUNT (AUTO) 9.5 K/uL (4.3-11.0)
[2025-08-19 12:37] LABS: ASPARTATE AMINOTRANSFERASE 20 U/L (15-37); CALCIUM, SERUM 7.8 mg/dL (8.5-10.1); CREATININE 0.4 mg/dL (0.6-1.3); PHOSPHORUS 2.7 mg/dL (2.5-4.9); SODIUM SERUM 142 mmol/L (136-145); TOTAL PROTEIN, SERUM 4.9 g/dL (6.4-8.2); UREA NITROGEN, BLOOD 27 mg/dL (7-18)
[2025-08-19 16:00] VITALS: BP 112/74; TEMP 97.5; O2SAT 98
[2025-08-19 20:00] VITALS: BP 117/65; TEMP 98; O2SAT 99
[2025-08-20] VITALS: BP 128/83; TEMP 98.1; O2SAT 99
[2025-08-20 04:00] VITALS: BP 116/78; TEMP 97.5; O2SAT 99
[2025-08-20 08:00] VITALS: BP 127/90; TEMP 97.5; O2SAT 97
[2025-08-20 10:03] LABS: PLATELET COUNT (AUTO) 608 K/uL (150-450); RED BLOOD CELL COUNT(AUTO) 3.59 MIL/uL (4.0-5.2); RED CELL DISTRIBUTION WIDTH 18.9 % (11.5-15.0); WHITE BLOOD COUNT (AUTO) 11.6 K/uL (4.3-11.0)
[2025-08-20 10:12] LABS: ASPARTATE AMINOTRANSFERASE 14.0 U/L (15-37); CALCIUM, SERUM 7.9 mg/dL (8.5-10.1); CREATININE 0.4 mg/dL (0.6-1.3); PHOSPHORUS 2.7 mg/dL (2.5-4.9); SODIUM SERUM 145.0 mmol/L (136-145); TOTAL PROTEIN, SERUM 5.3 g/dL (6.4-8.2); UREA NITROGEN, BLOOD 27.0 mg/dL (7-18)
[2025-08-20 12:00] VITALS: BP 122/68; TEMP 98.1; O2SAT 99
[2025-08-20 16:00] VITALS: BP 119/77; TEMP 98.1; O2SAT 99
[2025-08-20 20:00] VITALS: BP 110/65; TEMP 97.9; O2SAT 98
[2025-08-21] VITALS: BP 119/76; TEMP 98.4; O2SAT 98
[2025-08-21 04:00] VITALS: BP 122/76; TEMP 98.1; O2SAT 100
[2025-08-21 07:54] LABS: PLATELET COUNT (AUTO) 576 K/uL (150-450); RED BLOOD CELL COUNT(AUTO) 3.49 MIL/uL (4.0-5.2); RED CELL DISTRIBUTION WIDTH 18.8 % (11.5-15.0); WHITE BLOOD COUNT (AUTO) 7.2 K/uL (4.3-11.0)
[2025-08-21 08:00] VITALS: BP 130/85; TEMP 98.6; O2SAT 99
[2025-08-21 08:18] LABS: ASPARTATE AMINOTRANSFERASE 18 U/L (15-37); CALCIUM, SERUM 7.8 mg/dL (8.5-10.1); CREATININE 0.3 mg/dL (0.6-1.3); PHOSPHORUS 2.7 mg/dL (2.5-4.9); SODIUM SERUM 144 mmol/L (136-145); TOTAL PROTEIN, SERUM 5.1 g/dL (6.4-8.2); UREA NITROGEN, BLOOD 27 mg/dL (7-18)
[2025-08-21 12:00] VITALS: BP 123/98; TEMP 97.6; O2SAT 100
[2025-08-21 16:00] VITALS: BP 127/77; TEMP 97.7; O2SAT 100
[2025-08-21 20:00] VITALS: BP 119/92; TEMP 98; O2SAT 100
[2025-08-22] VITALS: BP 116/86; TEMP 98.2; O2SAT 100
[2025-08-22 04:00] VITALS: BP 109/71; TEMP 98.2; O2SAT 100
[2025-08-22 08:00] VITALS: BP 119/79; TEMP 97.5; O2SAT 100
[2025-08-22 10:34] LABS: PLATELET COUNT (AUTO) 544 K/uL (150-450); RED BLOOD CELL COUNT(AUTO) 3.58 MIL/uL (4.0-5.2); RED CELL DISTRIBUTION WIDTH 19.3 % (11.5-15.0); WHITE BLOOD COUNT (AUTO) 14.4 K/uL (4.3-11.0)
[2025-08-22 12:00] VITALS: BP 125/73; TEMP 97.6; O2SAT 98
[2025-08-22 16:03] LABS: PHOSPHORUS 2.9 mg/dL (2.5-4.9)
[2025-08-22 19:37] LABS: ASPARTATE AMINOTRANSFERASE 22.0 U/L (15-37); CALCIUM, SERUM 7.1 mg/dL (8.5-10.1); CREATININE 0.3 mg/dL (0.6-1.3); SODIUM SERUM 151.0 mmol/L (136-145); TOTAL PROTEIN, SERUM 4.2 g/dL (6.4-8.2); UREA NITROGEN, BLOOD 28.0 mg/dL (7-18)
== END 2025-08-22 15:19 | DRG 853 ==
LOC: ER 18:27 → TELE1 20:07 → ICU 20:55 → TELE-TD 08-17 14:43 → TELE1 08-18 09:34
PROVIDERS: ADMIT Nurse Practitioner Acute Care; ATTEND Student in an Organized Health Care Education/Training Program
PROC: 5A1955Z Respiratory Ventilation, Greater than 96 Consecutive Hours (ICD-10-PCS; principal; 2025-08-13)
PROC: 05H933Z Insertion of Infusion Device into Right Brachial Vein, Percutaneous Approach (ICD-10-PCS; 2025-08-13)
PROC: 0KBN0ZZ Excision of Right Hip Muscle, Open Approach (ICD-10-PCS; 2025-08-15)
PROC: 0KBP0ZZ Excision of Left Hip Muscle, Open Approach (ICD-10-PCS; 2025-08-15)
DX: A41.50 Gram-negative sepsis, unspecified (principal); E43 Unspecified severe protein-calorie malnutrition; L89.154 Pressure ulcer of sacral region, stage 4; G93.41 Metabolic encephalopathy; J96.21 Acute and chronic respiratory failure with hypoxia; R65.21 Severe sepsis with septic shock; J95.851 Ventilator associated pneumonia; D68.59 Other primary thrombophilia; Z99.11 Dependence on respirator [ventilator] status; N39.0 Urinary tract infection, site not specified; E87.20 Acidosis, unspecified; I48.20 Chronic atrial fibrillation, unspecified; G93.1 Anoxic brain damage, not elsewhere classified; R64 Cachexia; A04.72 Enterocolitis due to Clostridium difficile, not specified as recurrent; F03.90 Unspecified dementia, unspecified severity, without behavioral disturbance, psychotic disturbance, mood disturbance, and anxiety; Z86.74 Personal history of sudden cardiac arrest; Z93.1 Gastrostomy status; Z93.0 Tracheostomy status; Y84.8 Other medical procedures as the cause of abnormal reaction of the patient, or of later complication, without mention of misadventure at the time of the procedure; Y92.129 Unspecified place in nursing home as the place of occurrence of the external cause; R13.10 Dysphagia, unspecified; G80.9 Cerebral palsy, unspecified; F20.9 Schizophrenia, unspecified; F41.9 Anxiety disorder, unspecified; Z79.51 Long term (current) use of inhaled steroids; Z79.890 Hormone replacement therapy; E87.6 Hypokalemia; E86.0 Dehydration; R79.89 Other specified abnormal findings of blood chemistry; Z86.718 Personal history of other venous thrombosis and embolism; E03.9 Hypothyroidism, unspecified; Z74.01 Bed confinement status; D63.8 Anemia in other chronic diseases classified elsewhere; Z79.899 Other long term (current) drug therapy; B96.1 Klebsiella pneumoniae [K. pneumoniae] as the cause of diseases classified elsewhere; B96.83 Acinetobacter baumannii as the cause of diseases classified elsewhere; S70.321A Blister (nonthermal), right thigh, initial encounter; X58.XXXA Exposure to other specified factors, initial encounter; Y92.9 Unspecified place or not applicable
CPT/HCPCS: 31720; 36415; 71045-TC; 80048-TC; 80053-TC; 80076-TC; 80202-TC; 81001; 83605-TC; 83735-TC; 83880; 83970; 84100-TC; 84484-TC; 85025-TC; 85027-TC; 85730-TC; 86803; 87040-TC; 87070-TC; 87081-TC; 87086-TC; 87186-TC; 87205-TC; 87806; 94003-TC; 94640-TC; 94760-TC; 94762-TC; 94799-TC; A4223; A6213; A6253; A6403; A7526; G0378; J1720; J2185; J2405; J2543; J3373; J3374; J3490; J7030; J7050; J7060; J8597

== ENCOUNTER 2025-09-05 18:31 | Inpatient (IN) | payer MEDICARE, OTHER ==
[~2025-09-05] VITALS: Ht 162.6 cm; Wt 57.2 kg
[~2025-09-05 18:31] MED LIST changes: -ACET-2030 PO; +ACET160L44 GT; +ASCO500L2 GT; -ASCO500T10 PO; -CALC-770 PO; +CALC-953 GT; +CHLO473M5 MM; +CRAN3875 GT; +DIVA125C2 GT; -ERYT3.5O9 EACHEYE; +FERR220E2 GT; -FERR325T28 GT; -FERR325T28 PO; -GABA100C GT; +IBUP-1957 GT; +IPRA0.2S9 IH; -IPRA0.2S9 NEB; +LACT-209 GT; +METH1TAB GT; -METO25TA20 GT; +METO5SOL GT; -MIDO5TAB4 GT; -MULT-213 PO; +MULT9LIQ6 GT; +ONDA-97 GT; -QUET25TA PO; +TRIA15CR4 TP; -VALP250S4 PO; +ZINC GT; +ZOSYN IVPB 3.375 G in IV D5W 50ml IV ONE
[2025-09-05 19:15] LABS: PLATELET COUNT (AUTO) 310 K/uL (150-450); RED BLOOD CELL COUNT(AUTO) 2.71 MIL/uL (4.0-5.2); RED CELL DISTRIBUTION WIDTH 19.2 % (11.5-15.0); WHITE BLOOD COUNT (AUTO) 6.3 K/uL (4.3-11.0)
[2025-09-05 19:22] LABS: CALCIUM, SERUM 7.3 mg/dL (8.5-10.1); CREATININE 0.8 mg/dL (0.6-1.3); SODIUM SERUM 152 mmol/L (136-145); UREA NITROGEN, BLOOD 40 mg/dL (7-18)
[2025-09-05 19:26] LABS: INR 1.13 (0.91-1.10)
[2025-09-05 19:28] LABS: ASPARTATE AMINOTRANSFERASE 13 U/L (15-37); TOTAL PROTEIN, SERUM 5.5 g/dL (6.4-8.2)
[2025-09-05] MEDS: IV NS 0.9% 1,000 ML BAG IV ONE (21:39)
[2025-09-05] MEDS ORDERED: VANCOMYCIN 1 GM /D5W 250 ML PB IV ONE (21:41)
[2025-09-05] MEDS ORDERED: PIPERACI/TAZO 3.375GM/D5W 50ML PB IV ONE (21:41)
[2025-09-05] MEDS: PIPERACILLIN /TAZOBACTAM 3.375 G in IV D5W 50 ML IV ONE (21:48)
[2025-09-05 22:20] LABS: APPEARANCE,URINE SLIGHTLY CLOUDY (CLEAR); BLOOD, URINE 1+ Ery/uL (NEGATIVE); LEUKOCYTE ESTERASE ,URINE 2+ (NEGATIVE); NITRITE, URINE POSITIVE (NEGATIVE); UGLUCOSE NEGATIVE (NEGATIVE)
[2025-09-05] MEDS: VANCOMYCIN 1 GM in IV D5W 250 ML IV ONE (22:22)
[2025-09-05 22:25] LABS: ADD URINE CULTURE YES; SQUAMOUS EPITHELIAL CELL,UR Moderate /HPF (None Seen)
[2025-09-05] MEDS ORDERED: ALBUTEROL FS 2.5 MG/3 ML VIAL.NEB NEB PRN (23:00)
[2025-09-05] MEDS ORDERED: MAGNESIUM HYDROXIDE 30 ML UDC PO PRN (23:00)
[2025-09-05] MEDS ORDERED: IV NS 0.9% 1,000 ML IV PRN (23:00)
[2025-09-05] MEDS ORDERED: DOSING PER PHARMACY-VANCOMYCIN IV XX PRN (23:00)
[2025-09-05] MEDS ORDERED: ACETAMINOPHEN 325 MG TABLET PO PRN (23:00)
[2025-09-05] MEDS ORDERED: DOSING PER PHARMACY-ZOSYN IV 1 EA EA XX PRN (23:00)
[2025-09-05] MEDS ORDERED: MAG HYDROX/AL HYDROX/SIMETH 30 ML UDC PO PRN (23:00)
[2025-09-05] MEDS ORDERED: ENOXAPARIN SODIUM 40 MG/0.4 ML DISP.SYRIN SQ SCH (23:00)
[2025-09-06] VITALS (12 sets, daily range): BP systolic 85–122; BP diastolic 55–65; TEMP 97.3–98.4; O2SAT 99–100
[2025-09-06] MEDS: IV D5W 1,000 ML IV SCH (00:57)
[2025-09-06 06:13] LABS: PLATELET COUNT (AUTO) 360 K/uL (150-450); RED BLOOD CELL COUNT(AUTO) 2.23 MIL/uL (4.0-5.2); RED CELL DISTRIBUTION WIDTH 20.4 % (11.5-15.0); WHITE BLOOD COUNT (AUTO) 4.8 K/uL (4.3-11.0)
[2025-09-06] MEDS ORDERED: DOCU50LI GT (07:44)
[2025-09-06] MEDS ORDERED: ALBU2.5V38 IH (07:44)
[2025-09-06] MEDS ORDERED: ZINC50TA69 GT (07:44)
[2025-09-06 07:48] LABS: CALCIUM, SERUM 7.3 mg/dL (8.5-10.1); CREATININE 0.8 mg/dL (0.6-1.3); PHOSPHORUS 3.7 mg/dL (2.5-4.9); SODIUM SERUM 149.0 mmol/L (136-145); UREA NITROGEN, BLOOD 34.0 mg/dL (7-18)
[2025-09-06] MEDS: ZOSYN IVPB 3.375 G in IV D5W 50ml IV SCH (09:37)
[2025-09-06] MEDS: PANTOPRAZOLE 40 MG VIAL IV SCH (09:37)
[2025-09-06] MEDS: Z GUARD REMEDY 4 OZ OINT TP SCH (09:38)
[2025-09-06] MEDS: DAKINS QUARTER STRENGTH (0.125%) 480 ML BOTTLE TOP SCH (09:38)
[2025-09-06] MEDS ORDERED: ALBUMIN 25% 12.5 GM/50 ML BOTTLE IV ONE (10:00)
[2025-09-06] MEDS: ALBUMIN 25% 12.5 GM in PREMIX 1 EA IV ONE (11:15)
[2025-09-06 11:47] LABS: EOSINOPHILS % (MANUAL) 5 % (0-4); LYMPHOCYTES % (MANUAL) 19 % (16-48); MONOCYTES % (MANUAL) 8 % (0-11.0); NEUTROPHILS % (MANUAL) 68 (42-76); PLATELET ESTIMATE ADEQUATE
[2025-09-06] MEDS ORDERED: JEVITY 1.2 CAL 1,000 ML BOTTLE GT PRN ×3 (12:00→12:06)
[2025-09-06] MEDS: VANCOMYCIN 750 MG in IV D5W 250 ML IV SCH (12:40)
[2025-09-06] MEDS: VITAL AF 1.2 1,000 ML BOTTLE GT SCH (15:06)
[2025-09-07 00:09] VITALS: BP 116/75; TEMP 97.5; O2SAT 100
[2025-09-07 04:12] VITALS: BP 119/68; TEMP 97.2; O2SAT 100
[2025-09-07 06:21] LABS: PLATELET COUNT (AUTO) 542 K/uL (150-450); RED BLOOD CELL COUNT(AUTO) 3.29 MIL/uL (4.0-5.2); RED CELL DISTRIBUTION WIDTH 17.5 % (11.5-15.0); WHITE BLOOD COUNT (AUTO) 5.0 K/uL (4.3-11.0)
[2025-09-07 06:23] LABS: CALCIUM, SERUM 7.6 mg/dL (8.5-10.1); CREATININE 0.7 mg/dL (0.6-1.3); SODIUM SERUM 148.0 mmol/L (136-145); UREA NITROGEN, BLOOD 29.0 mg/dL (7-18)
[2025-09-07 06:28] LABS: PHOSPHORUS 3.8 mg/dL (2.5-4.9)
[2025-09-07 08:00] VITALS: BP 124/70; TEMP 97.2; O2SAT 100
[2025-09-07] MEDS: POTASSIUM CHLORIDE 20 MEQ POWDER PACKET NG SCH (10:00)
[2025-09-07 12:00] VITALS: BP 108/60; TEMP 97.4; O2SAT 97
[2025-09-07] MEDS: DIVALPROEX SODIUM 125 MG CAP.SPRINK GT SCH (12:55)
[2025-09-07] MEDS: FERROUS SULFATE UDC 300 MG/5 ML UDC GT SCH (12:55)
[2025-09-07 16:00] VITALS: BP 127/60; TEMP 97.3; O2SAT 98
[2025-09-07 17:27] LABS: OCCULT BLOOD STOOL NEGATIVE (NEGATIVE)
[2025-09-07] MEDS: CALCIUM CARB 600MG /VIT D 1 EACH TABLET GT SCH (17:30)
[2025-09-07] MEDS: PROSOURCE / PROSTAT (PYXIS) 30 ML UDC GT SCH (17:30)
[2025-09-07] MEDS: PIPERACILLIN /TAZOBACTAM 3.375 G in IV D5W 100 ML IV SCH (17:31)
[2025-09-07] MEDS: IV D5W 1,000 ML IV PRN (17:31)
[2025-09-07] MEDS: POLYETHYLENE GLYCOL 3350 17 GM POWD.PACK GT SCH (17:32)
[2025-09-07 20:00] VITALS: BP 101/55; TEMP 97.3; O2SAT 96
[2025-09-07] MEDS: POTASSIUM CHLORIDE 20 MEQ TAB.PRT.SR PO ONE (20:15)
[2025-09-07] MEDS: CHLORHEXIDINE GLUCONATE 15 ML UDC MM SCH (21:19)
[2025-09-07] MEDS: VANCOMYCIN 1 GM in IV D5W 250ml IV SCH (23:00)
[2025-09-08] VITALS: BP 89/53; TEMP 97.4; O2SAT 95
[2025-09-08 04:00] VITALS: BP 98/54; TEMP 98.4; O2SAT 97
[2025-09-08 07:49] LABS: PLATELET COUNT (AUTO) 438 K/uL (150-450); RED BLOOD CELL COUNT(AUTO) 2.60 MIL/uL (4.0-5.2); RED CELL DISTRIBUTION WIDTH 19.4 % (11.5-15.0); WHITE BLOOD COUNT (AUTO) 4.2 K/uL (4.3-11.0)
[2025-09-08 08:02] VITALS: BP 103/62; TEMP 98.1; O2SAT 97
[2025-09-08] MEDS: PANTOPRAZOLE 40 MG/PACK PACK NG SCH (08:59)
[2025-09-08] MEDS: DOCUSATE SODIUM LIQ 100 MG/10 ML UDC GT SCH (09:00)
[2025-09-08] MEDS: MULTIVITAMINS,THERAGRAN 1 UDTAB TABLET GT SCH (09:01)
[2025-09-08] MEDS: ZINC SULFATE 220 MG CAPSULE GT SCH (09:01)
[2025-09-08] MEDS: ASCORBIC ACID 500 MG TABLET GT SCH (09:01)
[2025-09-08] MEDS: LEVOTHYROXINE SODIUM 100 MCG TABLET PO SCH (09:01)
[2025-09-08] MEDS: FOLIC ACID 1 MG TABLET GT SCH (09:01)
[2025-09-08 10:23] LABS: CALCIUM, SERUM 7.9 mg/dL (8.5-10.1); CREATININE 1.0 mg/dL (0.6-1.3); SODIUM SERUM 146.0 mmol/L (136-145); UREA NITROGEN, BLOOD 24.0 mg/dL (7-18)
[2025-09-08 12:02] VITALS: BP 98/62; TEMP 97.9; O2SAT 98
[2025-09-08] MEDS: SOD FERRIC GLUC 125 MG in IV NS 0.9% 100 ML IV SCH (13:31)
[2025-09-08 16:00] VITALS: BP 106/67; TEMP 97.9; O2SAT 98
[2025-09-08 20:00] VITALS: BP 112/65; TEMP 98.5; O2SAT 99
[2025-09-08] MEDS: VITAL AF 1.2 1,000 ML BOTTLE GT SCH (23:40)
[2025-09-09] VITALS: BP 108/59; TEMP 97.3; O2SAT 98
[2025-09-09 04:00] VITALS: BP 137/88; TEMP 97.8; O2SAT 96
[2025-09-09 08:00] VITALS: BP 107/67; TEMP 97.9; O2SAT 96
[2025-09-09 09:57] LABS: PLATELET COUNT (AUTO) 787 K/uL (150-450); RED BLOOD CELL COUNT(AUTO) 3.59 MIL/uL (4.0-5.2); RED CELL DISTRIBUTION WIDTH 17.1 % (11.5-15.0); WHITE BLOOD COUNT (AUTO) 9.1 K/uL (4.3-11.0)
[2025-09-09 10:34] LABS: CALCIUM, SERUM 7.6 mg/dL (8.5-10.1); CREATININE 0.8 mg/dL (0.6-1.3); SODIUM SERUM 143.0 mmol/L (136-145); UREA NITROGEN, BLOOD 23.0 mg/dL (7-18)
[2025-09-09] MEDS: ONDANSETRON HCL/PF 4 MG/2 ML VIAL IVP PRN (12:15)
[2025-09-09 12:54] VITALS: BP 103/81; TEMP 97.2; O2SAT 96
[2025-09-09 16:34] VITALS: BP 110/56; TEMP 97.6; O2SAT 97
[2025-09-09 20:00] VITALS: BP 109/60; TEMP 97.4; O2SAT 93; O2SAT 95
[2025-09-10] VITALS (7 sets, daily range): BP systolic 68–114; BP diastolic 56–70; TEMP 97.2–98.5; O2SAT 95–99
[2025-09-10 07:26] LABS: PLATELET COUNT (AUTO) 653 K/uL (150-450); RED BLOOD CELL COUNT(AUTO) 4.20 MIL/uL (4.0-5.2); RED CELL DISTRIBUTION WIDTH 18.3 % (11.5-15.0); WHITE BLOOD COUNT (AUTO) 10.3 K/uL (4.3-11.0)
[2025-09-10 07:43] LABS: CALCIUM, SERUM 7.9 mg/dL (8.5-10.1); CREATININE 0.9 mg/dL (0.6-1.3); SODIUM SERUM 139.0 mmol/L (136-145); UREA NITROGEN, BLOOD 25.0 mg/dL (7-18)
[2025-09-10] MEDS: METOCLOPRAMIDE HCL 10 MG/2 ML VIAL IV SCH (20:08)
[2025-09-11] VITALS: BP 105/60; TEMP 97; O2SAT 94
[2025-09-11 04:00] VITALS: BP 90/66; TEMP 97; O2SAT 94
[2025-09-11 07:10] LABS: PLATELET COUNT (AUTO) 596 K/uL (150-450); RED BLOOD CELL COUNT(AUTO) 3.62 MIL/uL (4.0-5.2); RED CELL DISTRIBUTION WIDTH 17.9 % (11.5-15.0); WHITE BLOOD COUNT (AUTO) 12.8 K/uL (4.3-11.0)
[2025-09-11 07:32] LABS: CALCIUM, SERUM 8.1 mg/dL (8.5-10.1); CREATININE 1.4 mg/dL (0.6-1.3); SODIUM SERUM 136.0 mmol/L (136-145); UREA NITROGEN, BLOOD 29.0 mg/dL (7-18)
[2025-09-11 08:00] VITALS: BP 100/61; TEMP 97.5; O2SAT 97
[2025-09-11] MEDS: METOCLOPRAMIDE HCL 10 MG/2 ML VIAL IV SCH (10:47)
[2025-09-11 12:00] VITALS: BP 88/46; TEMP 97.3; O2SAT 97
[2025-09-11] MEDS ORDERED: IV LR 500 ML IV ONE (13:00)
[2025-09-11] MEDS: IV LR 1000 ML 1,000 ML IV ONE (13:43)
[2025-09-11] MEDS: POTASSIUM CL. PREMIX PERIPHER. 50 ML IV SCH (13:51)
[2025-09-11 16:00] VITALS: BP 98/60; TEMP 97.3; O2SAT 98
[2025-09-11] MEDS: SIMETHICONE 80 MG TAB.CHEW GT SCH (16:55)
[2025-09-11] MEDS: IV D5W 1,000 ML IV PRN (17:44)
[2025-09-11 20:00] VITALS: BP 91/60; TEMP 97.1; O2SAT 98
[2025-09-12] VITALS: BP 91/52; TEMP 97; O2SAT 98
[2025-09-12 04:00] VITALS: BP 94/54; TEMP 97.7; O2SAT 98
[2025-09-12 06:07] LABS: PLATELET COUNT (AUTO) 596 K/uL (150-450); RED BLOOD CELL COUNT(AUTO) 3.08 MIL/uL (4.0-5.2); RED CELL DISTRIBUTION WIDTH 17.0 % (11.5-15.0); WHITE BLOOD COUNT (AUTO) 13.4 K/uL (4.3-11.0)
[2025-09-12] MEDS: IV D5/ 0.9% NACL 1,000 ML IV PRN (06:22)
[2025-09-12 06:34] LABS: CALCIUM, SERUM 7.6 mg/dL (8.5-10.1); CREATININE 1.7 mg/dL (0.6-1.3); SODIUM SERUM 130.0 mmol/L (136-145); UREA NITROGEN, BLOOD 29.0 mg/dL (7-18)
[2025-09-12 08:00] VITALS: BP 100/67; TEMP 97.3; O2SAT 99
[2025-09-12] MEDS: Z GUARD REMEDY 4 OZ OINT TP PRN (08:51)
[2025-09-12 12:00] VITALS: BP 97/61; TEMP 98.3; O2SAT 95
[2025-09-12] MEDS: POTASSIUM CL. PREMIX PERIPHER. 50 ML IV SCH (12:10)
[2025-09-12] MEDS: LEVOFLOXACIN 500 MG /D5W 100ML 500 MG in PREMIX 1 EA IV ONE (14:20)
[2025-09-12 16:00] LABS: CALCIUM, SERUM 7.5 mg/dL (8.5-10.1); CREATININE 1.9 mg/dL (0.6-1.3); PHOSPHORUS 3.2 mg/dL (2.5-4.9); SODIUM SERUM 127.0 mmol/L (136-145); UREA NITROGEN, BLOOD 30.0 mg/dL (7-18)
[2025-09-12 16:57] VITALS: BP 101/59; TEMP 97.3; O2SAT 99
[2025-09-12 20:00] VITALS: BP 101/59; TEMP 96.9; O2SAT 98
[2025-09-12] MEDS ORDERED: PIPERACILLIN /TAZOBACTAM 3.375 G in IV D5W 100 ML IV SCH (21:00)
[2025-09-13] VITALS: BP 105/62; TEMP 97.1; O2SAT 99
[2025-09-13 04:00] VITALS: BP 95/67; TEMP 97.4; O2SAT 100
[2025-09-13 06:12] LABS: PLATELET COUNT (AUTO) 651 K/uL (150-450); RED BLOOD CELL COUNT(AUTO) 3.38 MIL/uL (4.0-5.2); RED CELL DISTRIBUTION WIDTH 17.1 % (11.5-15.0); WHITE BLOOD COUNT (AUTO) 14.1 K/uL (4.3-11.0)
[2025-09-13 06:33] LABS: ASPARTATE AMINOTRANSFERASE 20.0 U/L (15-37); CALCIUM, SERUM 7.7 mg/dL (8.5-10.1); CREATININE 2.0 mg/dL (0.6-1.3); PHOSPHORUS 3.5 mg/dL (2.5-4.9); SODIUM SERUM 129.0 mmol/L (136-145); TOTAL PROTEIN, SERUM 5.0 g/dL (6.4-8.2); UREA NITROGEN, BLOOD 32.0 mg/dL (7-18)
[2025-09-13 06:34] LABS: CREATINE KINASE, TOTAL 20.0 U/L (26-192)
[2025-09-13 08:00] VITALS: BP 104/68; TEMP 97.5; O2SAT 100
[2025-09-13] MEDS: POTASSIUM CL. PREMIX PERIPHER. 50 ML IV SCH (10:58)
[2025-09-13 12:00] VITALS: BP 94/72; TEMP 97.4; O2SAT 99
[2025-09-13] MEDS ORDERED: LEVOFLOXACIN 250 MG /D5W 50 ML 250 MG in PREMIX 1 EA IV SCH (14:00)
[2025-09-13] MEDS: CEFTAZIDIME 2 G in IV D5W 100 ML IV SCH (14:14)
[2025-09-13 16:00] VITALS: BP 99/62; TEMP 97.6; O2SAT 99
[2025-09-13 20:00] VITALS: BP 97/67; TEMP 97.2; O2SAT 98
[2025-09-14] VITALS: BP 138/73; TEMP 98.2; O2SAT 97
[2025-09-14 04:00] VITALS: BP 97/55; TEMP 97.2; O2SAT 98
[2025-09-14 08:00] VITALS: BP 98/60; TEMP 98.1; O2SAT 100
[2025-09-14 08:25] LABS: PLATELET COUNT (AUTO) 517 K/uL (150-450); RED BLOOD CELL COUNT(AUTO) 3.48 MIL/uL (4.0-5.2); RED CELL DISTRIBUTION WIDTH 17.2 % (11.5-15.0); WHITE BLOOD COUNT (AUTO) 17.2 K/uL (4.3-11.0)
[2025-09-14 08:59] LABS: CALCIUM, SERUM 7.9 mg/dL (8.5-10.1); CREATININE 2.4 mg/dL (0.6-1.3); PHOSPHORUS 3.4 mg/dL (2.5-4.9); SODIUM SERUM 130.0 mmol/L (136-145); UREA NITROGEN, BLOOD 37.0 mg/dL (7-18)
[2025-09-14 10:11] LABS: PTH, INTACT 21 pg/mL (15-65)
[2025-09-14] MEDS: FUROSEMIDE 40 MG/4 ML VIAL IV ONE (11:17)
[2025-09-14] MEDS: MAGNESIUM OXIDE 400 MG TABLET NG ONE (11:17)
[2025-09-14] MEDS: POTASSIUM CL. PREMIX PERIPHER. 50 ML IV SCH (11:17)
[2025-09-14 12:00] VITALS: BP 93/57; TEMP 98.3; O2SAT 100
[2025-09-14 12:58] LABS: LYMPHOCYTES % (MANUAL) 12 % (16-48); NEUTROPHILS % (MANUAL) 88 (42-76); PLATELET ESTIMATE INCREASED
[2025-09-14 16:00] VITALS: BP 110/65; TEMP 98.3; O2SAT 100
[2025-09-14 20:00] VITALS: BP 110/68; TEMP 97.4; O2SAT 98
[2025-09-15] VITALS: BP 110/72; TEMP 97.4; O2SAT 99
[2025-09-15 04:00] VITALS: BP 105/70; O2SAT 99
[2025-09-15 07:23] LABS: PLATELET COUNT (AUTO) 518 K/uL (150-450); RED BLOOD CELL COUNT(AUTO) 3.13 MIL/uL (4.0-5.2); RED CELL DISTRIBUTION WIDTH 18.1 % (11.5-15.0); WHITE BLOOD COUNT (AUTO) 11.9 K/uL (4.3-11.0)
[2025-09-15 07:46] LABS: ASPARTATE AMINOTRANSFERASE 17 U/L (15-37); CALCIUM, SERUM 7.6 mg/dL (8.5-10.1); CREATININE 2.4 mg/dL (0.6-1.3); PHOSPHORUS 3.5 mg/dL (2.5-4.9); SODIUM SERUM 131 mmol/L (136-145); TOTAL PROTEIN, SERUM 4.6 g/dL (6.4-8.2); UREA NITROGEN, BLOOD 38 mg/dL (7-18)
[2025-09-15 08:17] VITALS: BP 119/76; TEMP 97.6; O2SAT 98
[2025-09-15 09:14] LABS: APPEARANCE,URINE TURBID (CLEAR); BLOOD, URINE 3+ Ery/uL (NEGATIVE); LEUKOCYTE ESTERASE ,URINE 2+ (NEGATIVE); NITRITE, URINE POSITIVE (NEGATIVE); UGLUCOSE NEGATIVE (NEGATIVE)
[2025-09-15 09:17] LABS: CREATININE, URINE < 13.0 MG/DL (30.0-125.0); URINE SODIUM, RANDOM 89 mmol/l (40-220); URINE TOTAL PROTEIN 577.9 mg/dL (0-11.9)
[2025-09-15 09:31] LABS: ADD URINE CULTURE YES; EOSINOPHIL,URINE None Seen; SQUAMOUS EPITHELIAL CELL,UR Rare /HPF (None Seen)
[2025-09-15 12:23] VITALS: BP 119/76; TEMP 98.7; O2SAT 99
[2025-09-15 16:15] VITALS: BP 102/65; TEMP 97.9; O2SAT 97
[2025-09-15 20:00] VITALS: BP 125/77; TEMP 97; O2SAT 98
[2025-09-16] VITALS: BP 128/77; TEMP 96; O2SAT 98
[2025-09-16 04:00] VITALS: BP 130/70; O2SAT 96
[2025-09-16 08:00] VITALS: BP 96/51; TEMP 96.3; O2SAT 99
[2025-09-16] MEDS: COD LIVER OIL/ZINC OXIDE 120 GM TUBE TP SCH (08:28)
[2025-09-16] MEDS: NYSTATIN TOP POWDER 15 GM BOTTLE TP SCH (08:28)
[2025-09-16 10:41] LABS: PLATELET COUNT (AUTO) 409 K/uL (150-450); RED BLOOD CELL COUNT(AUTO) 3.20 MIL/uL (4.0-5.2); RED CELL DISTRIBUTION WIDTH 18.7 % (11.5-15.0); WHITE BLOOD COUNT (AUTO) 17.9 K/uL (4.3-11.0)
[2025-09-16 11:05] LABS: ASPARTATE AMINOTRANSFERASE 14 U/L (15-37); CALCIUM, SERUM 7.8 mg/dL (8.5-10.1); CREATININE 2.6 mg/dL (0.6-1.3); PHOSPHORUS 3.4 mg/dL (2.5-4.9); SODIUM SERUM 131 mmol/L (136-145); TOTAL PROTEIN, SERUM 4.7 g/dL (6.4-8.2); UREA NITROGEN, BLOOD 43 mg/dL (7-18)
[2025-09-16 11:08] LABS: CREATINE KINASE, TOTAL 9 U/L (26-192)
[2025-09-16 11:22] LABS: LYMPHOCYTES % (MANUAL) 5 % (16-48); MONOCYTES % (MANUAL) 2 % (0-11.0); MYELOCYTES % 7 % (0-0); NEUTROPHILS % (MANUAL) 86 (42-76); PLATELET ESTIMATE ADEQUATE
[2025-09-16 12:00] VITALS: BP 101/52; TEMP 96.9; O2SAT 97
[2025-09-16 16:00] VITALS: BP 67/42; TEMP 98; O2SAT 96
[2025-09-16] MEDS: IV NS 0.9% 250 ML IV ONE (16:54)
[2025-09-16] MEDS: MIDODRINE HCL (5MG) 5 MG TABLET PO SCH (16:56)
[2025-09-16] MEDS ORDERED: IV NS 0.9% 1,000 ML BAG IV PRN (17:30)
[2025-09-16] MEDS: IV NS 0.9% 1,000 ML IV PRN (18:28)
[2025-09-16 19:01] LABS: CALCIUM, SERUM 8.2 mg/dL (8.5-10.1); CREATININE 3.0 mg/dL (0.6-1.3); SODIUM SERUM 133.0 mmol/L (136-145); UREA NITROGEN, BLOOD 46.0 mg/dL (7-18)
[2025-09-16 19:48] LABS: PLATELET COUNT (AUTO) 444 K/uL (150-450); RED BLOOD CELL COUNT(AUTO) 3.52 MIL/uL (4.0-5.2); RED CELL DISTRIBUTION WIDTH 19.2 % (11.5-15.0); WHITE BLOOD COUNT (AUTO) 22.1 K/uL (4.3-11.0)
[2025-09-16 20:00] VITALS: BP 83/52; TEMP 97.5; O2SAT 96
[2025-09-16] MEDS: IV D5/ 0.9% NACL 1,000 ML IV PRN (20:06)
[2025-09-16] MEDS: POTASSIUM CHLORIDE 10 MEQ/50 ML PREMIXED IVPB FOR PERIPHERAL LINE IV ONE (20:09)
[2025-09-16 20:58] LABS: EOSINOPHILS % (MANUAL) 1 % (0-4); LYMPHOCYTES % (MANUAL) 10 % (16-48); MONOCYTES % (MANUAL) 5 % (0-11.0); NEUTROPHILS % (MANUAL) 84 (42-76)
[2025-09-16 20:59] LABS: PLATELET ESTIMATE ADEQUATE
[2025-09-17] VITALS (8 sets, daily range): BP systolic 76–107; BP diastolic 44–67; TEMP 97.2–97.9; O2SAT 98–100
[2025-09-17] MEDS ORDERED: ALBUMIN 25% 100 ML IV ONE (05:29)
[2025-09-17] MEDS: ALBUMIN 25% 25 GM in PREMIX 1 EA IV PRN (05:30)
[2025-09-17 07:37] LABS: CALCIUM, SERUM 8.5 mg/dL (8.5-10.1); CREATININE 3.1 mg/dL (0.6-1.3); PHOSPHORUS 3.3 mg/dL (2.5-4.9); SODIUM SERUM 137.0 mmol/L (136-145); UREA NITROGEN, BLOOD 51.0 mg/dL (7-18)
[2025-09-17 07:41] LABS: PLATELET COUNT (AUTO) 354 K/uL (150-450); RED BLOOD CELL COUNT(AUTO) 3.15 MIL/uL (4.0-5.2); RED CELL DISTRIBUTION WIDTH 18.6 % (11.5-15.0); WHITE BLOOD COUNT (AUTO) 18.5 K/uL (4.3-11.0)
[2025-09-17 08:41] LABS: LACTIC ACID 2.3 mmol/L (0.4-2.0)
[2025-09-17] MEDS: ACETYLCYSTEINE 10% SOLN 400 MG/4 ML VIAL NEB SCH (10:29)
[2025-09-17 10:32] LABS: LYMPHOCYTES % (MANUAL) 2 % (16-48); MONOCYTES % (MANUAL) 4 % (0-11.0); MYELOCYTES % 13 % (0-0); NEUTROPHILS % (MANUAL) 81 (42-76); PLATELET ESTIMATE ADEQUATE
[2025-09-17] MEDS ORDERED: POLYETHYLENE GLYCOL 3350 17 GM POWD.PACK PO SCH (11:00)
[2025-09-17 11:11] LABS: PTH, INTACT 16 pg/mL (15-65)
[2025-09-17 11:51] LABS: LACTIC ACID REFLEX 2.1 mmol/L (0.4-1.9)
[2025-09-17] MEDS: ALBUTEROL FS 2.5 MG/3 ML VIAL.NEB IH PRN (14:47)
[2025-09-17] MEDS: IPRATROPIUM NEB FS 0.5 MG/2.5 ML AMPUL.NEB NEB PRN (14:47)
[2025-09-17] MEDS ORDERED: DOSING PER PHARMACY-VANCOMYCIN IV XX PRN (15:30)
[2025-09-17] MEDS: MEROPENEM 500 MG in IV NS 0.9% 50 ML IV SCH (16:58)
[2025-09-17] MEDS: VANCOMYCIN 1 GM in IV D5W 250ml IV ONE (17:13)
[2025-09-18] VITALS (21 sets, daily range): BP systolic 45–110; BP diastolic 21–56; TEMP 92.9–98.7; O2SAT 97–100
[2025-09-18] MEDS ORDERED: MEROPENEM 500MG/NS 50 ML PB IV ONE (05:13)
[2025-09-18 06:08] LABS: ABG BASE EXCESS -13.1 mmol/L (-2.0-3.0); ABG OXYGEN SATURATION 97.0 % (94.0-98.0); ABG PCO2 26.1 mmHg (32.0-45.0); ABG PH 7.285 (7.350-7.450); ABG PO2 99.9 mmHg (83.0-108.0); ABG TOTAL HEMOGLOBIN 9.9 G/dL (12.0-16.0); FRACTIONATED INSPIRED OXYGEN 40.0 %; PEEP,BG 5 cm H2O; SET RATE, BG 18.0; SITE, ABG LEFT RADIAL; VT, ABG 450 mL
[2025-09-18 10:25] LABS: CALCIUM, SERUM 8.5 mg/dL (8.5-10.1); CREATININE 3.1 mg/dL (0.6-1.3); PHOSPHORUS 3.7 mg/dL (2.5-4.9); SODIUM SERUM 135.0 mmol/L (136-145); UREA NITROGEN, BLOOD 55.0 mg/dL (7-18)
[2025-09-18 13:43] LABS: INR 1.94 (0.91-1.10)
[2025-09-18 13:56] LABS: PLATELET COUNT (AUTO) 337 K/uL (150-450); RED BLOOD CELL COUNT(AUTO) 3.06 MIL/uL (4.0-5.2); RED CELL DISTRIBUTION WIDTH 18.3 % (11.5-15.0); WHITE BLOOD COUNT (AUTO) 20.8 K/uL (4.3-11.0)
[2025-09-18] MEDS: POTASSIUM CHLORIDE 20 MEQ POWDER PACKET GT ONE (16:15)
[2025-09-18] MEDS: Magnesium 1GM/D5W 100ML PREMIX PIGGYBACK IV ONE (16:16)
[2025-09-18] MEDS: DEXTROSE 50%-WATER 50 ML DISP.SYRIN IVP ONE (19:03)
[2025-09-18] MEDS ORDERED: ALBUMIN 25% 25 GM in PREMIX 1 EA IV PRN (21:00)
[2025-09-18] MEDS: NOREPINEPHRINE 8 MG in IV NS 0.9% 242 ML IV PRN (22:10)
[2025-09-18] MEDS: NOREPINEPHRINE 8MG/250ML RTU 250 ML IV ONE (22:11)
[2025-09-18] MEDS: ALBUMIN 25% 25 GM in PREMIX 1 EA IV SCH (22:42)
[2025-09-18] MEDS: IV NS 0.9% 250 ML IV ONE ×2 (22:43→23:29)
[2025-09-19] VITALS (94 sets, daily range): BP systolic 34–86; BP diastolic 13–55; TEMP 91.5–97; O2SAT 50–100
[2025-09-19] MEDS: NOREPINEPHRINE 32 MG in IV NS 0.9% 218 ML IV PRN (01:32)
[2025-09-19] MEDS: NOREPINEPHRINE 4 MG/4 ML AMPUL IV ONE (01:34)
[2025-09-19] MEDS: PHENYLEPHRINE 10 MG/ML VIAL ONE (02:37)
[2025-09-19] MEDS: PHENYLEPHRINE 100 MG in IV NS 0.9% 240 ML IV PRN ×2 (02:44→09:58)
[2025-09-19] MEDS ORDERED: ALBUMIN 25% 100 ML IV ONE (02:53)
[2025-09-19] MEDS: ALBUMIN 25% 25 GM in PREMIX 1 EA IV ONE (02:55)
[2025-09-19] MEDS ORDERED: IV NS 0.9% 500 ML IV ONE (04:00)
[2025-09-19 04:30] LABS: CALCIUM, SERUM 9.2 mg/dL (8.5-10.1); CREATININE 3.2 mg/dL (0.6-1.3); PHOSPHORUS 3.6 mg/dL (2.5-4.9); SODIUM SERUM 137.0 mmol/L (136-145); UREA NITROGEN, BLOOD 54.0 mg/dL (7-18)
[2025-09-19 04:34] LABS: PLATELET COUNT (AUTO) 392 K/uL (150-450); RED BLOOD CELL COUNT(AUTO) 3.35 MIL/uL (4.0-5.2); RED CELL DISTRIBUTION WIDTH 18.3 % (11.5-15.0)
[2025-09-19 04:39] LABS: WHITE BLOOD COUNT (AUTO) 45.4 K/uL (4.3-11.0)
[2025-09-19] MEDS: HYDROCORTISONE SOD SUCCINATE 100 MG/2 ML VIAL IV SCH (04:59)
[2025-09-19 05:33] LABS: LYMPHOCYTES % (MANUAL) 3 % (16-48); METAMYELOCYTES % 1 % (0-0); MONOCYTES % (MANUAL) 4 % (0-11.0); NEUTROPHILS % (MANUAL) 92 (42-76); PLATELET ESTIMATE ADEQUATE
[2025-09-19 06:06] LABS: *SPE A/G RATIO 0.2 (0.7-1.7); *SPE ALBUMIN 0.7 g/dL (2.9-4.4); *SPE ALPHA-1-GLOBULIN 0.4 g/dL (0.0-0.4); *SPE ALPHA-2-GLOBULIN 1.1 g/dL (0.4-1.0); *SPE BETA GLOBULIN 0.6 g/dL (0.7-1.3); *SPE GLOBULIN, TOTAL 3.4 g/dL (2.2-3.9); *SPE M-SPIKE Not Observed g/dL (Not Observed); *SPE PROTEIN TOTAL 4.1 g/dL (6.0-8.5); *SPEGAMMA GLOBULIN 1.3 g/dL (0.4-1.8)
[2025-09-19] MEDS: VASOPRESSIN INJ 40 UNIT in IV NS 0.9% 38 ML IV PRN (07:06)
[2025-09-19 09:04] LABS: PROTEIN, BODY FLUID 1.3 G/DL
[2025-09-19 11:10] LABS: APPEARANCE,SPUN,BODY FLUID CLEAR (CLEAR); MONOCYTES,BODY FLUID 5 %; TOTAL VOLUME,BODY FLUID 50 mL; WBC, BODY FLUID 84 /cu. mm. (0-200)
[2025-09-19] MEDS ORDERED: DOSE PER PHARMACY MICAFUNGIN 1 EA XX PRN (12:30)
[2025-09-19] MEDS: MICAFUNGIN SODIUM 100 MG in IV NS 0.9% 100 ML IV SCH (14:03)
[2025-09-19] MEDS: VANCOMYCIN 750 MG in IV D5W 250 ML IV SCH (16:47)
[2025-09-19] MEDS: DEXTROSE 50%-WATER 50 ML DISP.SYRIN IVP PRN (17:17)
[2025-09-19] MEDS ORDERED: DOPamine 800 MG in IV D5W 250 ML IV PRN (17:30)
[2025-09-19] MEDS ORDERED: DOPamine 400 MG/D5W 250 ML RTU BAG IV ONE (17:30)
[2025-09-19] MEDS: DOPamine 400 MG in IV D5W 250 ML IV PRN (17:54)
[2025-09-19] MEDS: IV NS 0.9% 250 ML IV PRN (18:50)
[2025-09-19] MEDS ORDERED: VANCOMYCIN 750 MG in IV D5W 250 ML IV SCH (20:30)
[2025-09-20 00:22] VITALS: BP 30/32; TEMP 90
[2025-09-20 13:13] LABS: *SPE A/G RATIO 0.2 (0.7-1.7); *SPE ALBUMIN 0.7 g/dL (2.9-4.4); *SPE ALPHA-1-GLOBULIN 0.4 g/dL (0.0-0.4); *SPE ALPHA-2-GLOBULIN 0.9 g/dL (0.4-1.0); *SPE BETA GLOBULIN 0.6 g/dL (0.7-1.3); *SPE GLOBULIN, TOTAL 3.3 g/dL (2.2-3.9); *SPE M-SPIKE Not Observed g/dL (Not Observed); *SPE PROTEIN TOTAL 4.0 g/dL (6.0-8.5); *SPEGAMMA GLOBULIN 1.3 g/dL (0.4-1.8)
[2025-09-20 15:07] LABS: *ANA ANTI-CENTROMERE B AB <0.2 AI (0.0-0.9); *ANA ANTI-DNA(DS) AB, QN 1 IU/mL (0-9); *ANA ANTI-JO-1 <0.2 AI (0.0-0.9); *ANA ANTICHROMATIN ANTIBODY <0.2 AI (0.0-0.9); *ANA RNP ANTIBODIES <0.2 AI (0.0-0.9); *ANA SJOGREN'S ANTI-SS-A 0.2 AI (0.0-0.9); *ANA SJOGREN'S ANTI-SS-B <0.2 AI (0.0-0.9); *ANAANTI-SCLERODERMA-70 AB <0.2 AI (0.0-0.9); *ANASMITH AB <0.2 AI (0.0-0.9)
[2025-09-21 08:07] LABS: COMPLEMENT C3, SERUM 50 mg/dL (82-167); COMPLEMENT C4, SERUM 15 mg/dL (12-38)
== END 2025-09-20 02:50 | DRG 853 ==
LOC: ER 18:35 → TELE1 22:46 → ICU 09-18 21:45
PROVIDERS: ADMIT Nurse Practitioner Family; ATTEND Nurse Practitioner Acute Care
PROC: 5A1955Z Respiratory Ventilation, Greater than 96 Consecutive Hours (ICD-10-PCS; principal; 2025-09-05)
PROC: 30233N1 Transfusion of Nonautologous Red Blood Cells into Peripheral Vein, Percutaneous Approach (ICD-10-PCS; 2025-09-06)
PROC: 0KBN0ZZ Excision of Right Hip Muscle, Open Approach (ICD-10-PCS; 2025-09-13)
PROC: 0KBP0ZZ Excision of Left Hip Muscle, Open Approach (ICD-10-PCS; 2025-09-13)
PROC: 0W993ZZ Drainage of Right Pleural Cavity, Percutaneous Approach (ICD-10-PCS; 2025-09-18)
PROC: 0JH63WZ Insertion of Totally Implantable Vascular Access Device into Chest Subcutaneous Tissue and Fascia, Percutaneous Approach (ICD-10-PCS; 2025-09-19)
PROC: 05HN33Z Insertion of Infusion Device into Left Internal Jugular Vein, Percutaneous Approach (ICD-10-PCS; 2025-09-19)
PROC: 0B21XFZ Change Tracheostomy Device in Trachea, External Approach (ICD-10-PCS; 2025-09-19)
DX: A41.9 Sepsis, unspecified organism (principal); E43 Unspecified severe protein-calorie malnutrition; J15.69 Pneumonia due to other Gram-negative bacteria; L89.154 Pressure ulcer of sacral region, stage 4; R65.21 Severe sepsis with septic shock; G93.1 Anoxic brain damage, not elsewhere classified; Z99.11 Dependence on respirator [ventilator] status; D62 Acute posthemorrhagic anemia; L97.829 Non-pressure chronic ulcer of other part of left lower leg with unspecified severity; L89.226 Pressure-induced deep tissue damage of left hip; J96.10 Chronic respiratory failure, unspecified whether with hypoxia or hypercapnia; N39.0 Urinary tract infection, site not specified; M86.18 Other acute osteomyelitis, other site; M00.9 Pyogenic arthritis, unspecified; J90 Pleural effusion, not elsewhere classified; Z93.0 Tracheostomy status; B96.1 Klebsiella pneumoniae [K. pneumoniae] as the cause of diseases classified elsewhere; B96.5 Pseudomonas (aeruginosa) (mallei) (pseudomallei) as the cause of diseases classified elsewhere; B96.89 Other specified bacterial agents as the cause of diseases classified elsewhere; N76.2 Acute vulvitis; I50.22 Chronic systolic (congestive) heart failure; G93.49 Other encephalopathy; F03.90 Unspecified dementia, unspecified severity, without behavioral disturbance, psychotic disturbance, mood disturbance, and anxiety; E03.9 Hypothyroidism, unspecified; F20.9 Schizophrenia, unspecified; G80.9 Cerebral palsy, unspecified; E87.20 Acidosis, unspecified; E87.0 Hyperosmolality and hypernatremia; D68.59 Other primary thrombophilia; E87.1 Hypo-osmolality and hyponatremia; J98.11 Atelectasis; Z66 Do not resuscitate; E88.09 Other disorders of plasma-protein metabolism, not elsewhere classified; R13.10 Dysphagia, unspecified; E86.0 Dehydration; Z20.822 Contact with and (suspected) exposure to COVID-19; Z79.899 Other long term (current) drug therapy; Z93.1 Gastrostomy status; Z87.440 Personal history of urinary (tract) infections; Z74.01 Bed confinement status; Y95 Nosocomial condition; Z86.74 Personal history of sudden cardiac arrest; F41.9 Anxiety disorder, unspecified; Z79.51 Long term (current) use of inhaled steroids; Z79.890 Hormone replacement therapy; M19.90 Unspecified osteoarthritis, unspecified site; E86.1 Hypovolemia; E87.6 Hypokalemia; I48.91 Unspecified atrial fibrillation; K44.9 Diaphragmatic hernia without obstruction or gangrene; K82.8 Other specified diseases of gallbladder; L30.9 Dermatitis, unspecified; M21.951 Unspecified acquired deformity of right thigh; M21.952 Unspecified acquired deformity of left thigh; M89.8X9 Other specified disorders of bone, unspecified site
CPT/HCPCS: 31720; 36415; 36600; 71045-TC; 71250-TC; 74018; 76770-TC; 80048-TC; 80053-TC; 80076-TC; 80202-TC; 81001; 82040-TC; 82248-TC; 82272-TC; 82550-TC; 82570-TC; 82803-TC; 82962-TC; 83605-TC; 83735-TC; 83970; 84100-TC; 84155; 84165; 84300-TC; 84443-TC; 84550-TC; 85025-TC; 85027-TC; 85610-TC; 85652-TC; 85730-TC; 86225; 86235; 86803; 86850-TC; 87040-TC; 87081-TC; 87086-TC; 87186-TC; 87340; 89051-TC; 94003-TC; 94760-TC; 94762-TC; 94799-TC; 99082-TC; A4216; A4223; A4623; A6213; A6403; A7526; C1751; G0378; J0713; J1265; J1720; J1938; J1956; J2185; J2248; J2405; J2470; J2543; J2765; J2916; J3373; J3374; J3475; J3480; J3490; J7030; J7040; J7042; J7050; J7060; J7070; J7120; P9016; P9047